=== PATIENT | male | born 1935 | race Caucasian/White ===

== ENCOUNTER 2017-02-12 10:54 | Inpatient (IN) | payer MEDICARE, BC ==
--- NOTE | 2017-02-12 11:46 | EDM.PDOC ---
ED HPI GENERAL MEDICAL PROBLEM - General Chief Complaint: General Stated Complaint: SWELLING BOTH LEGS Time Seen by Provider: 02/12/17 11:42 Source of Information: Reports: Patient, Family History Limitations: Reports: No Limitations - History of Present Illness INITIAL COMMENTS - FREE TEXT/NARRATIVE: pt arrived with leg swelling and some decrease in o2 sats. Onset: Gradual, Other (over the last 2 days. ) Duration: Day(s): Location: Reports: Chest, Lower Extremity, Left, Lower Extremity, Right Associated Symptoms: Reports: Cough, Other (o2 sats were low. ) - Related Data Allergies Allergy/AdvReac Type Severity Reaction Status Date / Time No Known Allergies Allergy Verified 02/12/17 11:25 Home Meds: Home Meds Carvedilol [Coreg] 12.5 mg PO BID 07/31/13 [History] Citalopram Hydrobromide [Celexa] 20 mg PO BEDTIME 07/31/13 [History] Digoxin [Lanoxin] 125 mcg PO BEDTIME 07/31/13 [History] Simvastatin [Zocor] 10 mg PO BEDTIME 07/31/13 [History] Ferrous Sulfate [Iron] 325 mg PO DAILY 12/05/15 [History] Furosemide 40 mg PO DAILY 12/05/15 [History] Multivit-Min/FA/Lycopene/Lut [Centrum Silver Tablet] 1 each PO DAILY 07/13/16 [ History] Past Medical History HEENT History: Reports: Cataract, Hard of Hearing Cardiovascular History: Reports: Aneurysm, Arrhythmia, Bypass, CAD, High Cholesterol, Hypertension, Pacemaker Respiratory History: Reports: COPD, Pneumonia, Recurrent Gastrointestinal History: Reports: GI Bleed Genitourinary History: Reports: Prostate Disorder Musculoskeletal History: Reports: Back Pain, Chronic, Gout, Osteoarthritis Other Musculoskeletal History: back surgery x 2 Psychiatric History: Reports: Depression Hematologic History: Reports: Blood Transfusion(s) Oncologic (Cancer) History: Reports: Colon, Liver - Infectious Disease History Infectious Disease History: Reports: Measles - Past Surgical History HEENT Surgical History: Reports: Eye Surgery, Oral Surgery, Tonsillectomy Cardiovascular Surgical History: Reports: AICD, Aneurysm, Coronary Artery Bypass , Coronary Artery Stent, Pacer GI Surgical History: Reports: Appendectomy, Colon, Colonoscopy Male Surgical History: Reports: TURBT-Transurethral Resection of Bladder Tumor Oncologic Surgical History: Reports: Other (See Below) Other Oncologic Surgeries/Procedures: 1/2 of liver removed. Social & Family History - Family History Family Medical History: Unobtainable - Tobacco Use Smoking Status *Q: Former Smoker Years of Tobacco use: 60 Packs/Tins Daily: 0.5 Used Tobacco, but Quit: Yes Month Tobacco Last Used: 0 Second Hand Smoke Exposure: Yes - Caffeine Use Caffeine Use: Reports: None - Alcohol Use Days Per Week of Alcohol Use: 0 - Recreational Drug Use Recreational Drug Use: No Drug Use in Last 12 Months: No ED ROS GENERAL - Review of Systems Review Of Systems: See Below Constitutional: Reports: No Symptoms HEENT: Reports: No Symptoms Respiratory: Reports: Cough Cardiovascular: Reports: No Symptoms, Other (pt has had a cardiac bypass and has a permanent pacemaker. ) Endocrine: Reports: No Symptoms GI/Abdominal: Reports: No Symptoms : Reports: No Symptoms ED EXAM, GENERAL - Physical Exam Exam: See Below Free Text/Narrative:: pt has been very inactive and lays in bed the majority of the day. He has not had chest pin. He suddenly has had alot more swelling in both legs. He has been slightly sob. His o2 sats were not good on arrival in the mid 80.s Exam Limited By: No Limitations General Appearance: Alert, Mild Distress Ears: Normal TMs Nose: Normal Inspection Throat/Mouth: Normal Inspection Head: Atraumatic Neck: Normal Inspection, Other ( neck veins promient. ) Respiratory/Chest: Other (low o2 sats. ) Cardiovascular: Irregularly Irregular, Other (pt has a pacemaker. ) GI/Abdominal: Soft, Non-Tender (Male) Exam: Deferred Rectal (Males) Exam: Deferred Back Exam: Normal Inspection Extremities: Pedal Edema, Other (pt has plus 2-3 edema present. ) Neurological: Alert, Oriented, Normal Cognition Psychiatric: Anxious Course - Vital Signs Last Recorded V/S: Last Vital Signs Temp 36.2 C 02/12/17 11:22 Pulse 68 02/12/17 11:22 Resp 20 02/12/17 11:22 BP 136/65 02/12/17 11:22 Pulse Ox 91 L 02/12/17 11:22 - Orders/Labs/Meds Orders: Active Orders 24 hr Category Date Time Status EKG Documentation Completion [RC] ASDIRECTED Care 02/12/17 11:40 Active Echo Comp wo Cont [US] Stat Exams 02/12/17 12:43 Ordered Echo Ltd [US] Stat Exams 02/12/17 12:33 Stop Req Sodium Chloride 0.9% [Saline Flush] Med 02/12/17 12:30 Active 10 ml FLUSH ASDIRECTED PRN Saline Lock Insert [OM.PC] Routine Oth 02/12/17 12:30 Ordered EKG 12 Lead [EK] Routine Ther 02/12/17 11:40 Ordered Medication Orders Sodium Chloride (Saline Flush) 10 ml FLUSH ASDIRECTED PRN PRN Reason: Keep Vein Open Labs: Laboratory Tests 02/12/17 02/12/17 02/12/17 Range/Units 11:51 11:51 11:51 WBC 7.9 (4.5-11.0) K/uL RBC 4.03 L (4.30-5.90) M/uL Hgb 12.1 D (12.0-15.0) g/dL Hct 37.4 L (40.0-54.0) % MCV 93 (80-98) fL MCH 30 (27-31) pg MCHC 32 (32-36) % Plt Count 131 L (150-400) K/uL Neut % (Auto) 79 H (36-66) % Lymph % (Auto) 6 L (24-44) % Elk % (Auto) 12 H (2-6) % Eos % (Auto) 3 (2-4) % Baso % (Auto) 0 (0-1) % Sodium 142 (140-148) mmol/L Potassium 4.6 (3.6-5.2) mmol/L Chloride 104 (100-108) mmol/L Carbon Dioxide 32 (21-32) mmol/L Anion Gap 6.0 (5.0-14.0) mmol/L BUN 38 H (7-18) mg/dL Creatinine 1.2 (0.8-1.3) mg/dL Est Cr Clr Drug Dosing 45.84 mL/min Estimated GFR (MDRD) 58 L (>60) Glucose 97 (74-106) mg/dL Calcium 9.0 (8.5-10.1) mg/dL Total Bilirubin 1.3 H D (0.2-1.0) mg/dL AST 29 (15-37) U/L ALT 25 (12-78) U/L Alkaline Phosphatase 161 H D (46-116) U/L Troponin I 0.041 (0.000-0.056) ng/mL Ids-Z-Ovfwxczwynv Pept 05549 H (5-450) pg/mL Total Protein 7.2 (6.4-8.2) g/dL Albumin 2.8 L (3.4-5.0) g/dL Globulin 4.4 H (2.3-3.5) g/dL Albumin/Globulin Ratio 0.6 L (1.2-2.2) Urine Color Urine Appearance Urine pH (4.5-8.0) Ur Specific [place] (1.008-1.030) Urine Protein (NEGATIVE) mg/dL Urine Glucose (UA) (NEGATIVE) mg/dL Urine Ketones (NEGATIVE) mg/dL Urine Occult Blood (NEGATIVE) Urine Nitrite (NEGAITVE) Urine Bilirubin (NEGATIVE) Urine Urobilinogen (NORMAL) mg/dL Ur Leukocyte Esterase (NEGATIVE) Urine RBC (0-5) Urine WBC (0-5) Ur Epithelial Cells Amorphous Sediment Urine Bacteria Urine Mucus Urine Other 02/12/17 Range/Units 12:13 WBC (4.5-11.0) K/uL RBC (4.30-5.90) M/uL Hgb (12.0-15.0) g/dL Hct (40.0-54.0) % MCV (80-98) fL MCH (27-31) pg MCHC (32-36) % Plt Count (150-400) K/uL Neut % (Auto) (36-66) % Lymph % (Auto) (24-44) % Elk % (Auto) (2-6) % Eos % (Auto) (2-4) % Baso % (Auto) (0-1) % Sodium (140-148) mmol/L Potassium (3.6-5.2) mmol/L Chloride (100-108) mmol/L Carbon Dioxide (21-32) mmol/L Anion Gap (5.0-14.0) mmol/L BUN (7-18) mg/dL Creatinine (0.8-1.3) mg/dL Est Cr Clr Drug Dosing mL/min Estimated GFR (MDRD) (>60) Glucose (74-106) mg/dL Calcium (8.5-10.1) mg/dL Total Bilirubin (0.2-1.0) mg/dL AST (15-37) U/L ALT (12-78) U/L Alkaline Phosphatase (46-116) U/L Troponin I (0.000-0.056) ng/mL Tdb-F-Scaaeykhbuj Pept (5-450) pg/mL Total Protein (6.4-8.2) g/dL Albumin (3.4-5.0) g/dL Globulin (2.3-3.5) g/dL Albumin/Globulin Ratio (1.2-2.2) Urine Color Yellow Urine Appearance Slightly cloudy Urine pH 5.0 (4.5-8.0) Ur Specific [place] 1.015 (1.008-1.030) Urine Protein 30 H (NEGATIVE) mg/dL Urine Glucose (UA) Normal (NEGATIVE) mg/dL Urine Ketones Negative (NEGATIVE) mg/dL Urine Occult Blood Negative (NEGATIVE) Urine Nitrite Negative (NEGAITVE) Urine Bilirubin Small (NEGATIVE) Urine Urobilinogen 1 (NORMAL) mg/dL Ur Leukocyte Esterase Negative (NEGATIVE) Urine RBC 0-5 (0-5) Urine WBC 0-5 (0-5) Ur Epithelial Cells Few Amorphous Sediment Not seen Urine Bacteria Not seen Urine Mucus Few Urine Other Meds: Medications Generic Name Dose Route Start Last Admin Trade Name Freq PRN Reason Stop Dose Admin Sodium Chloride 10 ml 02/12/17 12:30 Saline Flush FLUSH ASDIRECTED PRN Keep Vein Open Discontinued Medications Generic Name Dose Route Start Last Admin Trade Name Freq PRN Reason Stop Dose Admin Furosemide 60 mg 02/12/17 12:30 Lasix IVPUSH 02/12/17 12:31 ONETIME ONE - Re-Assessments/Exams Free Text/Narrative Re-Assessment/Exam: 02/12/17 13:56 echo was done showing a decreased funtion and leaky vlves the report will come from the cardiology. He was given lasix 60m iv. Departure - Departure Time of Disposition: 13:57 Disposition: Admitted As Inpatient 66 Condition: fair Clinical Impression: Fluid overload, Decreased cardiac ejection fraction, COPD (chronic obstructive pulmonary disease) - Discharge Information Forms: ED Department Discharge Care Plan Goals: dmit to Dr Pritchett - My Orders Last 24 Hours: My Active Orders 02/12/17 11:40 EKG Documentation Completion [RC] ASDIRECTED EKG 12 Lead [EK] Routine 02/12/17 12:30 Sodium Chloride 0.9% [Saline Flush] 10 ml FLUSH ASDIRECTED PRN Saline Lock Insert [OM.PC] Routine 02/12/17 12:33 Echo Ltd [US] Stat 02/12/17 12:43 Echo Comp wo Cont [US] Stat - Assessment/Plan Last 24 Hours: My Active Orders 02/12/17 11:40 EKG Documentation Completion [RC] ASDIRECTED EKG 12 Lead [EK] Routine 02/12/17 12:30 Sodium Chloride 0.9% [Saline Flush] 10 ml FLUSH ASDIRECTED PRN Saline Lock Insert [OM.PC] Routine 02/12/17 12:33 Echo Ltd [US] Stat 02/12/17 12:43 Echo Comp wo Cont [US] Stat
[2017-02-12] MEDS ORDERED: Sodium Chloride 0.9% 10 ML Syringe FLUSH PRN (12:30)
[2017-02-12] MEDS ORDERED: Furosemide 40 MG/4 ML VIAL IVPUSH ONE (12:30)
--- NOTE | 2017-02-12 12:33 | CR ---
Two-view chest Comparison: 08 December 2015. Lungs: There is cardiac enlargement. The vascular structures appear within normal limits. There is c hronic patchy infiltrate of the left lung base with a small left pleural effusion. This is also demo nstrated in the CT exam of the abdomen from June 2016. There are no new infiltrates. There is car diac pacemaker on the left with 2 intact leads. Impression: 1. Chronic left basilar opacity with small left pleural effusion. 2. Stable cardiac enlargement.
--- NOTE | 2017-02-12 15:31 | PCM.HP ---
H&P History of Present Illness - General Date of Service: 02/12/17 Admit Problem/Dx: Admission Diagnosis/Problem Admission Diagnosis/Problem CHF, Congestive heart failure Source of Information: Patient, Family, Provider History Limitations: Reports: No Limitations - History of Present Illness Initial Comments - Free Text/Narative: Lorenzo presents today with some progression of shortness of breath and lower extremity edema. Most of the history is gathered from his Debra. She reports that he has been getting progressively weaker over the past few months. He now spends most of his time in bed or in a chair. He is minimally active going to the bathroom and getting to meals. He does not think that he is more short of breath with activity but she seems to think that he is more dyspneic with activity that he has been. He has had progressive lower extremity edema involving the ankles and mid clemente area for the past 2 days. He did get an extra dose of Lasix yesterday but this did not help. He does not complain of any chest pain. Does not currently feel short of breath. He says his bowels have been moving normally. He does not complain of significant change in his urinary habits. He is not aware of any fevers. No sick contacts that he is aware of. He seems to think that he is nearing the end of his life and asked why don't we just let him go. He has not had any recent defibrillator shocks. He has not been eating or drinking well but is able to get in a protein drink in the morning and some juice and milk throughout the day. He has lost a significant amount of weight in the past year but most of the weight loss was 1 year ago and things have been stable since then. Workup in the emergency room revealed a very elevated BNP. Echocardiogram was obtained but final read is pending at this time. From my read there appears to be a significant reduction in his ejection fraction and he has severe mitral and tricuspid regurgitation. Mild aortic regurgitation is noted. He has received a dose of furosemide in the emergency room. He will be admitted for further management. - Related Data Allergies/Adverse Reactions: Allergies Allergy/AdvReac Type Severity Reaction Status Date / Time No Known Allergies Allergy Verified 02/12/17 11:25 Home Medications: Home Meds Carvedilol [Coreg] 12.5 mg PO BID 07/31/13 [History] Citalopram Hydrobromide [Celexa] 20 mg PO BEDTIME 07/31/13 [History] Digoxin [Lanoxin] 125 mcg PO BEDTIME 07/31/13 [History] Simvastatin [Zocor] 10 mg PO BEDTIME 07/31/13 [History] Ferrous Sulfate [Iron] 325 mg PO DAILY 12/05/15 [History] Furosemide 40 mg PO DAILY 12/05/15 [History] Multivit-Min/FA/Lycopene/Lut [Centrum Silver Tablet] 1 each PO DAILY 07/13/16 [ History] Past Medical History HEENT History: Reports: Cataract, Hard of Hearing Cardiovascular History: Reports: Aneurysm, Arrhythmia, Bypass, CAD, High Cholesterol, Hypertension, Pacemaker Respiratory History: Reports: COPD, Pneumonia, Recurrent Gastrointestinal History: Reports: GI Bleed Genitourinary History: Reports: Prostate Disorder Musculoskeletal History: Reports: Back Pain, Chronic, Gout, Osteoarthritis Other Musculoskeletal History: back surgery x 2 Psychiatric History: Reports: Depression Hematologic History: Reports: Blood Transfusion(s) Oncologic (Cancer) History: Reports: Colon, Liver - Infectious Disease History Infectious Disease History: Reports: Measles - Past Surgical History HEENT Surgical History: Reports: Eye Surgery, Oral Surgery, Tonsillectomy Cardiovascular Surgical History: Reports: AICD, Aneurysm, Coronary Artery Bypass , Coronary Artery Stent, Pacer GI Surgical History: Reports: Appendectomy, Colon, Colonoscopy Male Surgical History: Reports: TURBT-Transurethral Resection of Bladder Tumor Oncologic Surgical History: Reports: Other (See Below) Other Oncologic Surgeries/Procedures: 1/2 of liver removed. Social & Family History - Family History Family Medical History: Unobtainable - Tobacco Use Smoking Status *Q: Former Smoker Years of Tobacco use: 60 Packs/Tins Daily: 0.5 Used Tobacco, but Quit: Yes Month Tobacco Last Used: 0 Second Hand Smoke Exposure: Yes - Caffeine Use Caffeine Use: Reports: None - Alcohol Use Days Per Week of Alcohol Use: 0 - Recreational Drug Use Recreational Drug Use: No Drug Use in Last 12 Months: No H&P Review of Systems - Review of Systems: Review Of Systems: See Below Free Text/Narrative: A complete 12 point review of systems was obtained. Pertinent positives and negatives are noted in the history of present illness. All other systems were reviewed and were negative except as noted. Exam - Exam Exam: See Below - Vital Signs Vital Signs: Last Vital Signs Temp 36.0 C 02/12/17 14:36 Pulse 76 02/12/17 14:36 Resp 24 H 02/12/17 14:36 BP 124/75 02/12/17 14:36 Pulse Ox 95 02/12/17 14:36 Weight: 67.132 kg - Exam Quality Assessment: Supplemental Oxygen General: Alert, Cooperative, Mild Distress HEENT: Conjunctiva Clear, Pupils Equal. No: Mucosa Moist & Thayer (dry), Scleral Icterus Neck: Supple, Trachea Midline. No: Lymphadenopathy, JVD Lungs: Clear to Auscultation, Normal Respiratory Effort. No: Rales, Wheezing Cardiovascular: Regular Rate, Irregular Rhythm, Systolic Murmur (3 different murmurs. Soft blowing murmurs of different intensity at left upper and left lower sternal border. Blowing systolic murmur at the apex) Abdomen: Normal Bowel Sounds, Soft. No: Distention, Tenderness Back Exam: Normal Inspection, Full Range of Motion Extremities: Edema (The edema of both ankles and lower legs to near the knee bilaterally. Left worse than the right). No: Cyanosis Peripheral Pulses: 2+: Dorsalis Pedis (L), Dorsalis Pedis (R) Skin: Warm, Dry. No: Rash Neuro Extensive - Mental Status: Alert, Nl Response to Commands Neuro Extensive - Motor, Sensory, Reflexes: CN II-XII Intact. No: Dysarthria, Abnormal Motor, Tremor Psychiatric: Alert. No: Normal Affect (Flat affect) - Patient Data Lab Results last 24 hrs: Laboratory Results - last 24 hr 02/12/17 02/12/17 02/12/17 Range/Units 11:51 11:51 11:51 WBC 7.9 (4.5-11.0) K/uL RBC 4.03 L (4.30-5.90) M/uL Hgb 12.1 D (12.0-15.0) g/dL Hct 37.4 L (40.0-54.0) % MCV 93 (80-98) fL MCH 30 (27-31) pg MCHC 32 (32-36) % Plt Count 131 L (150-400) K/uL Neut % (Auto) 79 H (36-66) % Lymph % (Auto) 6 L (24-44) % Jay % (Auto) 12 H (2-6) % Eos % (Auto) 3 (2-4) % Baso % (Auto) 0 (0-1) % Sodium 142 (140-148) mmol/L Potassium 4.6 (3.6-5.2) mmol/L Chloride 104 (100-108) mmol/L Carbon Dioxide 32 (21-32) mmol/L Anion Gap 6.0 (5.0-14.0) mmol/L BUN 38 H (7-18) mg/dL Creatinine 1.2 (0.8-1.3) mg/dL Est Cr Clr Drug Dosing 45.84 mL/min Estimated GFR (MDRD) 58 L (>60) Glucose 97 (74-106) mg/dL Calcium 9.0 (8.5-10.1) mg/dL Total Bilirubin 1.3 H D (0.2-1.0) mg/dL AST 29 (15-37) U/L ALT 25 (12-78) U/L Alkaline Phosphatase 161 H D (46-116) U/L Troponin I 0.041 (0.000-0.056) ng/mL Qnl-O-Urswuxbmnon Pept 42945 H (5-450) pg/mL Total Protein 7.2 (6.4-8.2) g/dL Albumin 2.8 L (3.4-5.0) g/dL Globulin 4.4 H (2.3-3.5) g/dL Albumin/Globulin Ratio 0.6 L (1.2-2.2) Urine Color Urine Appearance Urine pH (4.5-8.0) Ur Specific [place] (1.008-1.030) Urine Protein (NEGATIVE) mg/dL Urine Glucose (UA) (NEGATIVE) mg/dL Urine Ketones (NEGATIVE) mg/dL Urine Occult Blood (NEGATIVE) Urine Nitrite (NEGAITVE) Urine Bilirubin (NEGATIVE) Urine Urobilinogen (NORMAL) mg/dL Ur Leukocyte Esterase (NEGATIVE) Urine RBC (0-5) Urine WBC (0-5) Ur Epithelial Cells Amorphous Sediment Urine Bacteria Urine Mucus Urine Other 02/12/17 Range/Units 12:13 WBC (4.5-11.0) K/uL RBC (4.30-5.90) M/uL Hgb (12.0-15.0) g/dL Hct (40.0-54.0) % MCV (80-98) fL MCH (27-31) pg MCHC (32-36) % Plt Count (150-400) K/uL Neut % (Auto) (36-66) % Lymph % (Auto) (24-44) % Jay % (Auto) (2-6) % Eos % (Auto) (2-4) % Baso % (Auto) (0-1) % Sodium (140-148) mmol/L Potassium (3.6-5.2) mmol/L Chloride (100-108) mmol/L Carbon Dioxide (21-32) mmol/L Anion Gap (5.0-14.0) mmol/L BUN (7-18) mg/dL Creatinine (0.8-1.3) mg/dL Est Cr Clr Drug Dosing mL/min Estimated GFR (MDRD) (>60) Glucose (74-106) mg/dL Calcium (8.5-10.1) mg/dL Total Bilirubin (0.2-1.0) mg/dL AST (15-37) U/L ALT (12-78) U/L Alkaline Phosphatase (46-116) U/L Troponin I (0.000-0.056) ng/mL Qhx-U-Fzaascvwkbx Pept (5-450) pg/mL Total Protein (6.4-8.2) g/dL Albumin (3.4-5.0) g/dL Globulin (2.3-3.5) g/dL Albumin/Globulin Ratio (1.2-2.2) Urine Color Yellow Urine Appearance Slightly cloudy Urine pH 5.0 (4.5-8.0) Ur Specific [place] 1.015 (1.008-1.030) Urine Protein 30 H (NEGATIVE) mg/dL Urine Glucose (UA) Normal (NEGATIVE) mg/dL Urine Ketones Negative (NEGATIVE) mg/dL Urine Occult Blood Negative (NEGATIVE) Urine Nitrite Negative (NEGAITVE) Urine Bilirubin Small (NEGATIVE) Urine Urobilinogen 1 (NORMAL) mg/dL Ur Leukocyte Esterase Negative (NEGATIVE) Urine RBC 0-5 (0-5) Urine WBC 0-5 (0-5) Ur Epithelial Cells Few Amorphous Sediment Not seen Urine Bacteria Not seen Urine Mucus Few Urine Other Result Diagrams: 02/12/17 11:51 02/12/17 11:51 Imaging Impressions last 24 hrs: Chest x-ray - images personally reviewed - lung ovalle appear clear with no infiltrate or effusion. He does have cardiomegaly. Probable hyperinflation suggesting COPD. EKG INTERPRETATION EKG Date: 02/12/17 Rhythm: a-fib [place]: LAD-left axis deviation P-wave: variable QRS: LBBB (Paced rhythm) ST-T: other (Discordant EKG changes consistent with left bundle branch block) QT: normal *Q Meaningful Use (ADM) - VTE *Q VTE Criteria *Q: - VTE Risk Assess *Q Each Risk Factor Represents 1 Point: Congestive Heart Failure, Less than 1 Month , Abnormal Pulmonary Function (COPD) Total Score 1 Point Risk Factors: 2 Each Risk Factor Represents 2 Points: None Total Score 2 Point Risk Factors: 0 Each Risk Factor Represents 3 Points: Age 75 Years or Greater Total Score 3 Point Risk Factors: 3 Each Risk Factor Represents 5 Points: None Total Score 5 Point Risk Factors: 0 Venous Thromboembolism Risk Factor Score *Q: 5 - Stroke *Q Stroke Criteria *Q: - AMI *Q AMI Criteria *Q: - Problem List (1) Chronic systolic congestive heart failure, NYHA class 3 SNOMED Code(s): 514523535, 975872923, 616168360 ICD Code: I50.22 - CHRONIC SYSTOLIC (CONGESTIVE) HEART FAILURE Status: Acute Current Visit: Yes (2) Unintentional weight loss SNOMED Code(s): 545788364 ICD Code: R63.4 - ABNORMAL WEIGHT LOSS Status: Acute Current Visit: Yes (3) Stage III chronic kidney disease SNOMED Code(s): 820971498 ICD Code: N18.3 - CHRONIC KIDNEY DISEASE, STAGE 3 (MODERATE) Status: Chronic Current Visit: Yes (4) COPD (chronic obstructive pulmonary disease) with emphysema SNOMED Code(s): 41084006 ICD Code: J43.9 - EMPHYSEMA, UNSPECIFIED Status: Chronic Current Visit: No Qualifiers: Emphysema type: unspecified Qualified Code(s): J43.9 - Emphysema, unspecified Problem List Initiated/Reviewed/Updated: Yes Orders Last 24hrs: Active Orders 24 hr Category Date Time Status Patient Status Manage Transfer [TRANSFER] Routine ADT 02/12/17 15:17 Ordered EKG Documentation Completion [RC] ASDIRECTED Care 02/12/17 11:40 Active Echo Comp wo Cont [US] Stat Exams 02/12/17 12:43 Taken Sodium Chloride 0.9% [Saline Flush] Med 02/12/17 12:30 Active 10 ml FLUSH ASDIRECTED PRN Saline Lock Insert [OM.PC] Routine Oth 02/12/17 12:30 Ordered Resuscitation Status Routine Resus Stat 02/12/17 15:18 Ordered EKG 12 Lead [EK] Routine Ther 02/12/17 11:40 Ordered Medication Orders Sodium Chloride (Saline Flush) 10 ml FLUSH ASDIRECTED PRN PRN Reason: Keep Vein Open Last Admin: 02/12/17 14:02 Dose: 10 ml Assessment/Plan Comment:: Assessment and plan - Acute on chronic systolic congestive heart failure - secondary to ischemic cardiomyopathy, patient does have lower extremity edema but vascular status seems to suggest intravascular dehydration. He has received some furosemide but has not had much in the way of urine output. I think he actually needs some fluids are to restarting diuretics. Oral intake recently has not been great. With his weight loss, decline in functional status and progressive symptoms I do have some concern that he may be nearing the end stage of his congestive heart failure. His ejection fraction has been around 20% for the past 10 years or so. There is no evidence for acute myocardial infarction at this time. -1 L of IV fluids provided over 10 hours to avoid decompensation -Continue medical management -Hold diuretics -Recess volume status in the morning -Monitoring of intake and output -Follow-up echocardiogram final read -I did bring up hospice but at this point his does not think that he is ready for these services Unintentional weight loss - Most of his weight loss In one year ago after hospitalization. He is not eating and drinking well now. This could be part of his end-stage congestive heart failure type picture. We will need further discussions about plan of care which could include subacute rehabilitation or potentially more of a palliative-based approach. Chronic atrial fibrillation - Rate controlled at this time. 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 He is not chronically anticoagulated because of previous life-threatening hemorrhages. -Continue rate control Stage III chronic kidney disease - Creatinine clearance is worse than baseline. Hopefully will improve with some hydration and we can restart diuretics tomorrow. COPD with emphysema - Mild hypoxia noted at presentation. Patient is not symptomatic and I suspect this is his baseline. No evidence for acute exacerbation. -As needed nebulizers Maintenance issues - - DVT prophylaxis - SCDs - GI prophylaxis - not indicated - Nutrition - low sodium - Hodgson catheter - not indicated CODE STATUS - DO NOT RESUSCITATE/DO NOT INTUBATE Admission justification - This patient will be admitted for inpatient services and is medically appropriate meeting medical necessity for inpatient admission as outlined in my documentation. I reasonably expect the patient will require inpatient services that span a period time over 2 midnights. I reasonably expect this patient to be discharged or transferred within 96 hours [facility]. Disposition - patient wishes to go home but would likely benefit from subacute rehabilitation Primary care physician - Dr Jose Pritchett M.D.
[2017-02-12] MEDS ORDERED: Acetaminophen 325 MG Tab PO PRN (17:24)
[2017-02-12] MEDS ORDERED: Polyethylene Glycol 3350 Powder 17 GM Packet PO PRN (17:24)
[2017-02-12] MEDS ORDERED: Albuterol/Ipratropium 3.0-0.5 MG/3 ML Neb Soln NEB PRN (17:24)
[2017-02-12] MEDS ORDERED: Ondansetron 4 MG Tab.DIS PO PRN (17:24)
[2017-02-12] MEDS ORDERED: Sodium Chloride 0.9% 1,000 ML IV SCH (17:24)
[2017-02-12] MEDS: Citalopram 20 MG Tab PO SCH (20:19)
[2017-02-12] MEDS: Simvastatin 20 MG Tab PO SCH (20:20)
[2017-02-12] MEDS: Carvedilol 12.5 MG Tab PO SCH (20:21)
[2017-02-12] MEDS: Digoxin 125 MCG Tab PO SCH (20:22)
[2017-02-13] MEDS: Ferrous Sulfate 325 MG Tab PO SCH (08:05)
[2017-02-13] MEDS: Carvedilol 12.5 MG Tab PO SCH ×2 (08:06→22:09)
--- NOTE | 2017-02-13 16:20 | PCM.PN ---
- General Info Date of Service: 02/13/17 Functional Status: Reports: pain controlled, tolerating diet, ambulating - Review of Systems General: Reports: Weakness Pulmonary: Denies: shortness of breath Cardiovascular: Reports: Edema (Mild) Systems Review Comment:: No acute events overnight. Lower extremity edema has improved with IV fluids. He has not had any fevers. No complaints of shortness of breath. Oxygen saturations are borderline at rest and do drop into the mid 80s with activity. Strength seems to be improving and he was able to ambulate to the bathroom and back. He is able to get out of bed on his own. - Patient Data Vitals - most recent: Last Vital Signs Temp 34.9 C L 02/13/17 13:25 Pulse 87 02/13/17 13:25 Resp 20 02/13/17 13:25 BP 84/52 L 02/13/17 13:25 Pulse Ox 89 L 02/13/17 13:25 Weight - most recent: 70.2 kg I&O - last 24 hours: Intake & Output 02/13/17 02/13/17 02/13/17 06:59 14:59 22:59 Intake Total 1240 480 Output Total 575 Balance 665 480 Lab Results last 24 hrs: Laboratory Results - last 24 hr 02/13/17 02/13/17 Range/Units 05:00 05:00 WBC 7.0 (4.5-11.0) K/uL RBC 3.81 L (4.30-5.90) M/uL Hgb 11.5 L (12.0-15.0) g/dL Hct 35.2 L (40.0-54.0) % MCV 92 (80-98) fL MCH 30 (27-31) pg MCHC 33 (32-36) % Plt Count 141 L (150-400) K/uL Sodium 143 (140-148) mmol/L Potassium 3.9 (3.6-5.2) mmol/L Chloride 106 (100-108) mmol/L Carbon Dioxide 29 (21-32) mmol/L Anion Gap 8.1 (5.0-14.0) mmol/L BUN 34 H (7-18) mg/dL Creatinine 1.2 (0.8-1.3) mg/dL Est Cr Clr Drug Dosing 47.94 mL/min Estimated GFR (MDRD) 58 L (>60) Glucose 89 (74-106) mg/dL Calcium 8.6 (8.5-10.1) mg/dL C-Reactive Protein 8.42 H (0.0-0.3) mg/dL Med Orders - Current: Current Medications Acetaminophen (Tylenol) 650 mg PO Q4H PRN PRN Reason: Pain (Mild 1-3)/fever Last Admin: 02/13/17 00:19 Dose: 650 mg Albuterol/Ipratropium (Duoneb 3.0-0.5 Mg/3 Ml) 3 ml NEB QID PRN PRN Reason: Shortness Of Breath/wheezing Last Admin: 02/12/17 20:25 Dose: 3 ml Carvedilol (Coreg) 12.5 mg PO BID [facility] Last Admin: 02/13/17 08:06 Dose: 12.5 mg Citalopram Hydrobromide (Celexa) 20 mg PO BEDTIME [facility] Last Admin: 02/12/17 20:19 Dose: 20 mg Digoxin (Lanoxin) 125 mcg PO BEDTIME [facility] Last Admin: 02/12/17 20:22 Dose: 125 mcg Ferrous Sulfate (Ferrous Sulfate) 325 mg PO DAILY@0800 [facility] Last Admin: 02/13/17 08:05 Dose: 325 mg Ondansetron HCl (Zofran Odt) 4 mg PO Q6H PRN PRN Reason: Nausea able to take PO Polyethylene Glycol (Miralax) 17 gm PO DAILY PRN PRN Reason: Constipation Simvastatin (Zocor) 10 mg PO BEDTIME [facility] Last Admin: 02/12/17 20:20 Dose: 10 mg Sodium Chloride (Saline Flush) 10 ml FLUSH ASDIRECTED PRN PRN Reason: Keep Vein Open Last Admin: 02/12/17 14:02 Dose: 10 ml Discontinued Medications Furosemide (Lasix) 60 mg IVPUSH ONETIME ONE Stop: 02/12/17 12:31 Last Admin: 02/12/17 14:00 Dose: 60 mg Sodium Chloride (Normal Saline) 1,000 mls @ 100 mls/hr IV ASDIRECTED [facility] Stop: 02/13/17 03:23 Last Admin: 02/12/17 17:39 Dose: 100 mls/hr - Exam Quality Assessment: No: supplemental oxygen General: alert, oriented, cooperative, no acute distress Neck: supple Lungs: Clear to auscultation, Normal respiratory effort Cardiovascular: Regular Rate, Regular Rhythm, Murmurs Abdomen: soft, no distension Extremities: no cyanosis, edema (Mild bilateral ankle edema) Skin: warm, dry Psy/Mental Status: alert, normal affect - Problem List & Annotations (1) Chronic systolic congestive heart failure, NYHA class 3 SNOMED Code(s): 756733724, 799049303, 383364825 Code(s): I50.22 - CHRONIC SYSTOLIC (CONGESTIVE) HEART FAILURE Status: Acute Current Visit: Yes (2) Unintentional weight loss SNOMED Code(s): 722885978 Code(s): R63.4 - ABNORMAL WEIGHT LOSS Status: Acute Current Visit: Yes (3) Stage III chronic kidney disease SNOMED Code(s): 420610863 Code(s): N18.3 - CHRONIC KIDNEY DISEASE, STAGE 3 (MODERATE) Status: Chronic Current Visit: Yes (4) COPD (chronic obstructive pulmonary disease) with emphysema SNOMED Code(s): 98082015 Code(s): J43.9 - EMPHYSEMA, UNSPECIFIED Status: Chronic Current Visit: No Qualifiers: Emphysema type: unspecified Qualified Code(s): J43.9 - Emphysema, unspecified - Problem List Review Problem List Initiated/Reviewed/Updated: Yes - My Orders Last 24 Hours: My Active Orders 02/12/17 15:18 Resuscitation Status Routine 02/12/17 17:24 Patient Status [ADT] Routine Bedrest Bedside Commode [RC] ASDIRECTED Height and Weight [RC] DAILY Intake and Output [RC] QSHIFT Notify Provider Vital Signs [RC] ASDIRECTED Oxygen Therapy [RC] PRN RT Aerosol Therapy [RC] ASDIRECTED Vital Signs [RC] Q4H PT Evaluation and Treatment [CONS] Routine Acetaminophen [Tylenol] 650 mg PO Q4H PRN Albuterol/Ipratropium [DuoNeb 3.0-0.5 MG/3 ML] 3 ml NEB QID PRN Ondansetron [Zofran ODT] 4 mg PO Q6H PRN Polyethylene Glycol 3350 [MiraLAX] 17 gm PO DAILY PRN Antiembolic Hose [OM.PC] Per Unit Routine 02/12/17 18:03 Pressure Reduction Mattress [OM.PC] Routine 02/13/17 14:57 Evaluate for Home Oxygen [RT Evaluate for Home Oxygen] [RC] Click to Edit 02/13/17 Dinner 2 Gram Sodium Diet [DIET] - Plan Plan:: Assessment and plan - Acute on chronic systolic congestive heart failure - secondary to ischemic cardiomyopathy. Seems better compensated after some IV fluids. Intravascular volume status seems more appropriate today. He does have some mild residual edema but it is quite a bit better. Planning to hold diuretics again and monitor respiratory status overnight. -Continue medical management -Hold diuretics, reassess dosing tomorrow -Recess volume status daily -Monitoring of intake and output -I did bring up hospice but at this point his does not think that he is ready for these services Unintentional weight loss - Most of his weight loss In one year ago after hospitalization. He is not eating and drinking well now. This could be part of his end-stage congestive heart failure type picture. We will need further discussions about plan of care which could include subacute rehabilitation or potentially more of a palliative-based approach. Chronic atrial fibrillation - Rate controlled at this time. 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 He is not chronically anticoagulated because of previous life-threatening hemorrhages. -Continue rate control Stage III chronic kidney disease - Creatinine clearance has improved slightly with hydration. COPD with emphysema - Mild hypoxia noted at presentation. Patient is not symptomatic and I suspect this is his baseline. No evidence for acute exacerbation. -As needed nebulizers -See if patient qualifies for home oxygen Maintenance issues - - DVT prophylaxis - SCDs - GI prophylaxis - not indicated - Nutrition - low sodium Disposition - patient wishes to go home but would likely benefit from subacute rehabilitation. He should be stable for hospital discharge tomorrow. Bartolo Pritchett M.D.
[2017-02-13] MEDS: Simvastatin 20 MG Tab PO SCH (22:10)
[2017-02-13] MEDS: Digoxin 125 MCG Tab PO SCH (22:10)
[2017-02-13] MEDS: Citalopram 20 MG Tab PO SCH (22:10)
[2017-02-14] MEDS: Ferrous Sulfate 325 MG Tab PO SCH (09:25)
[2017-02-14] MEDS: Carvedilol 12.5 MG Tab PO SCH (09:25)
[2017-02-14 12:36] VITALS: BP 114/65
--- NOTE | 2017-02-14 12:43 | PCM.DCSUM1 ---
Discharge Summary - Hospital Course Brief History: 81-year-old male with history of tobacco dependence and chronic systolic congestive heart failure who presented with progressive lower extremity edema and shortness of breath. He was admitted for management of decompensated heart failure with hypoxic respiratory failure. - Discharge Data Discharge Date: 02/14/17 Discharge Disposition: Home, Self-Care 01 Condition: Fair - Discharge Diagnosis/Problem(s) (1) Chronic systolic congestive heart failure, NYHA class 3 SNOMED Code(s): 925318384, 835149099, 067591815 ICD Code: I50.22 - CHRONIC SYSTOLIC (CONGESTIVE) HEART FAILURE Status: Acute (2) Unintentional weight loss SNOMED Code(s): 623334404 ICD Code: R63.4 - ABNORMAL WEIGHT LOSS Status: Acute (3) Stage III chronic kidney disease SNOMED Code(s): 893897040 ICD Code: N18.3 - CHRONIC KIDNEY DISEASE, STAGE 3 (MODERATE) Status: Chronic (4) COPD (chronic obstructive pulmonary disease) with emphysema SNOMED Code(s): 21643925 ICD Code: J43.9 - EMPHYSEMA, UNSPECIFIED Status: Chronic Qualifiers: Emphysema type: unspecified Qualified Code(s): J43.9 - Emphysema, unspecified - Patient Summary/Data Consults: Consultations 02/12/17 17:24 PT Evaluation and Treatment [CONS] Routine Please Evaluate and Treat. PT Reason for Consult: Strengthening This query below is only for informational purposes and is not editable. Hospital Course: Reginaldo presented to the emergency room with shortness of breath and progressive lower extremity edema. Workup in the emergency room was suggestive of congestive heart failure and furosemide was given. On my examination I was more suspicious that he had intravascular depletion and I elected to treat with IV fluids. Overnight he did not have any acute events. His lower extremity edema was 50% better from the time of hospital admission after receiving some IV fluids. Respiratory status had improved and clinically he was more alert and interactive. Strength seemed to be fairly adequate and he was able to get out of bed and go to the bathroom and back. We held his diuretics for an additional day and monitor his volume status. The second day of admission he has essentially no lower extremity edema. Respiratory status does remain stable. He did qualify for home oxygen as discussed below. For his heart failure, I suspect that he had intravascular volume depletion leading to kind of a high output failure type picture. He has responded well to IV fluids. We have elected to hold his diuretics and use them as needed if he does develop any lower extremity edema. He is on acceptable medical management for his heart failure. He did have an echo in the emergency department. This revealed an ejection fraction around 20% with likely ischemic cardiomyopathy and severe mitral and tricuspid regurgitation. His ejection fraction back in 2008 was in the 20% range as well. I do have some concerns that his congestive heart failure may be nearing an end stage. He has had significant weight loss and progressive decline in function. I did discuss hospice with the patient and his . At this point they're not ready for hospice and don't believe that he has at that stage of his life. They have elected to continue medical management and will be going home today. He will be on home oxygen 24 hours a day. I did not change any of his medications other than making his furosemide as needed rather than scheduled. I had a [id number] encounter with Mr. Patel today, 02/14/2017. The face-to -face encounter was 4 COPD with emphysema. I believe that he would benefit from using supplemental oxygen 24 hours per day. He is active around the home and would benefit from portable oxygen. On February 13 he had an oxygen saturation of 85% on room air. Oxygen saturations with 2 L of oxygen have been greater than 90%. Been on supplemental oxygen will help to reduce the stress on the heart with hypoxia and help to improve his endurance and conditioning. - Patient Instructions Diet: Regular Diet as Tolerated Activity: As Tolerated Showering/Bathing: May Shower Notify Provider of: Fever, Increased Pain, Nausea and/or Vomiting Other/Special Instructions: 1. You were in the hospital for management of congestive heart failure with intravascular volume depletion. The heart failure did get better with some gentle IV fluids and holding the diuretics. I would recommend that you not take the furosemide daily but rather use it only if you have ankle swelling for 2 consecutive days. You can help to manage the ankle swelling with the tight socks that we provided in the hospital or with elevating your legs above the level of your pelvis for 20-30 minutes at a time, several times per day. Try to avoid consuming extra salt with your diet. 2. I recommend that you use supplemental oxygen at 2 L per minute 24 hours a day. You may elect to take this off while you are resting if you do not have shortness of breath and if your oxygen numbers are greater than 88%. 3. Please seek medical attention if you develop fever greater than 101, have sudden worsening of your shortness of breath or have significant swelling of your lower extremities that does not respond to furosemide. - Discharge Plan Prescriptions/Med Rec: Furosemide 40 mg PO DAILY PRN #30 tablet PRN Reason: Edema Home Medications: Home Meds Carvedilol [Coreg] 12.5 mg PO BID 07/31/13 [History] Citalopram Hydrobromide [Celexa] 20 mg PO BEDTIME 07/31/13 [History] Digoxin [Lanoxin] 125 mcg PO BEDTIME 07/31/13 [History] Simvastatin [Zocor] 10 mg PO BEDTIME 07/31/13 [History] Ferrous Sulfate [Iron] 325 mg PO DAILY 12/05/15 [History] Multivit-Min/FA/Lycopene/Lut [Centrum Silver Tablet] 1 each PO DAILY 07/13/16 [ History] Furosemide 40 mg PO DAILY PRN #30 tablet 02/14/17 [Rx] Patient Handouts: Chronic Obstructive Pulmonary Disease Referrals: Lam Garcia MD [Primary Care Provider] - - Discharge Summary/Plan Comment DC Time >30 min.: No (25) - Patient Data Vitals - Most Recent: Last Vital Signs Temp 35.5 C 02/14/17 12:35 Pulse 57 L 02/14/17 12:35 Resp 16 02/14/17 12:35 BP 114/65 02/14/17 12:35 Pulse Ox 94 L 02/14/17 12:35 Weight - Most Recent: 70.2 kg I&O - Last 24 hours: Intake & Output 02/13/17 02/14/17 02/14/17 22:59 06:59 14:59 Intake Total 480 240 240 Balance 480 240 240 Med Orders - Current: Current Medications Acetaminophen (Tylenol) 650 mg PO Q4H PRN PRN Reason: Pain (Mild 1-3)/fever Last Admin: 02/13/17 00:19 Dose: 650 mg Albuterol/Ipratropium (Duoneb 3.0-0.5 Mg/3 Ml) 3 ml NEB QID PRN PRN Reason: Shortness Of Breath/wheezing Last Admin: 02/12/17 20:25 Dose: 3 ml Carvedilol (Coreg) 12.5 mg PO BID [facility] Last Admin: 02/14/17 09:25 Dose: 12.5 mg Citalopram Hydrobromide (Celexa) 20 mg PO BEDTIME [facility] Last Admin: 02/13/17 22:10 Dose: 20 mg Digoxin (Lanoxin) 125 mcg PO BEDTIME [facility] Last Admin: 02/13/17 22:10 Dose: 125 mcg Ferrous Sulfate (Ferrous Sulfate) 325 mg PO DAILY@0800 [facility] Last Admin: 02/14/17 09:25 Dose: 325 mg Ondansetron HCl (Zofran Odt) 4 mg PO Q6H PRN PRN Reason: Nausea able to take PO Polyethylene Glycol (Miralax) 17 gm PO DAILY PRN PRN Reason: Constipation Simvastatin (Zocor) 10 mg PO BEDTIME [facility] Last Admin: 02/13/17 22:10 Dose: 10 mg Sodium Chloride (Saline Flush) 10 ml FLUSH ASDIRECTED PRN PRN Reason: Keep Vein Open Last Admin: 02/12/17 14:02 Dose: 10 ml Discontinued Medications Furosemide (Lasix) 60 mg IVPUSH ONETIME ONE Stop: 02/12/17 12:31 Last Admin: 02/12/17 14:00 Dose: 60 mg Sodium Chloride (Normal Saline) 1,000 mls @ 100 mls/hr IV ASDIRECTED [facility] Stop: 02/13/17 03:23 Last Admin: 02/12/17 17:39 Dose: 100 mls/hr *Q Meaningful Use (DIS) - VTE *Q VTE Criteria *Q: - Stroke *Q Stroke Criteria *Q: - AMI *Q AMI Criteria *Q:
== END 2017-02-14 13:15 | disposition home or self-care (01) | DRG 291 ==
LOC: JP.ED 10:54 → JP.MS 15:17
PROVIDERS: ADMIT Internal Medicine; ATTEND Internal Medicine
DX: I13.0 Hypertensive heart and chronic kidney disease with heart failure and stage 1 through stage 4 chronic kidney disease, or unspecified chronic kidney disease (principal); I50.23 Acute on chronic systolic (congestive) heart failure; E86.9 Volume depletion, unspecified; N18.3 Chronic kidney disease, stage 3 (moderate); Z66 Do not resuscitate; Z87.891 Personal history of nicotine dependence; J43.9 Emphysema, unspecified; I25.10 Atherosclerotic heart disease of native coronary artery without angina pectoris; Z99.81 Dependence on supplemental oxygen; M19.90 Unspecified osteoarthritis, unspecified site; F32.9 Major depressive disorder, single episode, unspecified; Z87.01 Personal history of pneumonia (recurrent); Z95.0 Presence of cardiac pacemaker; E78.00 Pure hypercholesterolemia, unspecified; Z95.1 Presence of aortocoronary bypass graft; H91.90 Unspecified hearing loss, unspecified ear; Z85.038 Personal history of other malignant neoplasm of large intestine; Z85.05 Personal history of malignant neoplasm of liver
CPT/HCPCS: 36415; 71020 ×2; 80053; 81001; 83880; 84484; 85025; 93005; 93306; 96374; 99284; J1940; J7050; 80048; 85027; 86140; 93010; 97161-GP; 97530-GP; 99285; A9270-GY; J7040; J7620

== ENCOUNTER 2017-04-03 16:15 | Inpatient (IN) | payer MEDICARE, BC ==
[2017-04-03] MEDS ORDERED: Furosemide 40 MG/4 ML VIAL IVPUSH ONE (17:32)
[2017-04-03] MEDS ORDERED: Albuterol 0.083% 2.5 MG/3 ML Neb Soln NEB ONE (17:33)
--- NOTE | 2017-04-03 17:39 | EDM.PDOC ---
ED HPI GENERAL MEDICAL PROBLEM - General Chief Complaint: Respiratory Problem Stated Complaint: MEDICAL VIA TRI Time Seen by Provider: 04/03/17 16:25 Source of Information: Reports: Patient, Family History Limitations: Reports: No Limitations - History of Present Illness INITIAL COMMENTS - FREE TEXT/NARRATIVE: pt was found sitting in the kitchen without his o2. He was very sob. He was so weak he was bearly able to walk. He has not been able to eat normally. Onset: Today, Other ( his breathing was much worse than usual. ) Duration: Hour(s):, Getting Worse Location: Reports: Chest Associated Symptoms: Reports: No Other Symptoms, Cough, Shortness of Breath, Weakness - Related Data Allergies Allergy/AdvReac Type Severity Reaction Status Date / Time No Known Allergies Allergy Verified 02/12/17 11:25 Home Meds: Home Meds Carvedilol [Coreg] 12.5 mg PO BID 07/31/13 [History] Citalopram Hydrobromide [Celexa] 20 mg PO BEDTIME 07/31/13 [History] Digoxin [Lanoxin] 125 mcg PO BEDTIME 07/31/13 [History] Simvastatin [Zocor] 10 mg PO BEDTIME 07/31/13 [History] Ferrous Sulfate [Iron] 325 mg PO DAILY 12/05/15 [History] Multivit-Min/FA/Lycopene/Lut [Centrum Silver Tablet] 1 each PO DAILY 07/13/16 [ History] Furosemide 40 mg PO DAILY PRN #30 tablet 02/14/17 [Rx] Past Medical History HEENT History: Reports: Cataract, Hard of Hearing Cardiovascular History: Reports: Aneurysm, Arrhythmia, Bypass, CAD, High Cholesterol, Hypertension, Pacemaker Respiratory History: Reports: COPD, Pneumonia, Recurrent Gastrointestinal History: Reports: GI Bleed Genitourinary History: Reports: Prostate Disorder Musculoskeletal History: Reports: Back Pain, Chronic, Gout, Osteoarthritis Other Musculoskeletal History: back surgery x 2 Psychiatric History: Reports: Depression Hematologic History: Reports: Blood Transfusion(s) Oncologic (Cancer) History: Reports: Colon, Liver - Infectious Disease History Infectious Disease History: Reports: Chicken Pox, Measles, Mumps - Past Surgical History HEENT Surgical History: Reports: Eye Surgery, Oral Surgery, Tonsillectomy Cardiovascular Surgical History: Reports: AICD, Aneurysm, Coronary Artery Bypass , Coronary Artery Stent, Pacer GI Surgical History: Reports: Appendectomy, Colon, Colonoscopy Male Surgical History: Reports: TURBT-Transurethral Resection of Bladder Tumor Oncologic Surgical History: Reports: Other (See Below) Other Oncologic Surgeries/Procedures: 1/2 of liver removed. Social & Family History - Family History Family Medical History: Unobtainable - Tobacco Use Smoking Status *Q: Former Smoker Years of Tobacco use: 60 Packs/Tins Daily: 0.5 Used Tobacco, but Quit: Yes Month Tobacco Last Used: many years ago Second Hand Smoke Exposure: Yes - Caffeine Use Caffeine Use: Reports: Coffee Other Caffeine Use: very little - Alcohol Use Days Per Week of Alcohol Use: 0 - Recreational Drug Use Recreational Drug Use: No Drug Use in Last 12 Months: No ED ROS GENERAL - Review of Systems Review Of Systems: See Below Constitutional: Reports: No Symptoms HEENT: Reports: No Symptoms Respiratory: Reports: Shortness of Breath Cardiovascular: Reports: No Symptoms Endocrine: Reports: No Symptoms GI/Abdominal: Reports: Decreased Appetite : Reports: No Symptoms Musculoskeletal: Reports: No Symptoms Skin: Reports: No Symptoms Neurological: Reports: Weakness Psychiatric: Reports: Anxiety ED EXAM, GENERAL - Physical Exam Exam: See Below Free Text/Narrative:: pt arrived with increased sob. He was very weak and he had trouble even getting back to his room. Exam Limited By: Respiratory Distress General Appearance: Alert, Moderate Distress Ears: Normal TMs Nose: Normal Inspection Throat/Mouth: Normal Inspection Head: Atraumatic Neck: Normal Inspection Respiratory/Chest: Decreased Breath Sounds, Rhonchi Cardiovascular: Regular Rate, Rhythm GI/Abdominal: Soft, Non-Tender (Male) Exam: Normal Inspection Rectal (Males) Exam: Deferred Back Exam: Normal Inspection Extremities: Normal Inspection Neurological: Alert, Oriented, Normal Cognition Psychiatric: Anxious Course - Vital Signs Last Recorded V/S: Last Vital Signs Temp 37.2 C 04/03/17 16:19 Pulse 70 04/03/17 18:09 Resp 16 04/03/17 16:19 BP 137/55 L 04/03/17 18:09 Pulse Ox 96 04/03/17 18:09 - Orders/Labs/Meds Orders: Active Orders 24 hr Category Date Time Status EKG Documentation Completion [RC] ASDIRECTED Care 04/03/17 16:34 Active RT Aerosol Therapy [RC] ASDIRECTED Care 04/03/17 17:34 Active Chest 1V Frontal [CR] Stat Exams 04/03/17 16:33 Taken CULTURE URINE [RM] Stat Lab 04/03/17 18:27 Uncollected EKG 12 Lead [EK] Routine Ther 04/03/17 16:34 Ordered Labs: Laboratory Tests 04/03/17 04/03/17 04/03/17 Range/Units 16:33 16:40 16:40 WBC 11.1 H (4.5-11.0) K/uL RBC 3.86 L (4.30-5.90) M/uL Hgb 11.5 L (12.0-15.0) g/dL Hct 35.4 L (40.0-54.0) % MCV 92 (80-98) fL MCH 30 (27-31) pg MCHC 33 (32-36) % Plt Count 109 L (150-400) K/uL Neut % (Auto) 84 H (36-66) % Lymph % (Auto) 4 L (24-44) % [place] % (Auto) 11 H (2-6) % Eos % (Auto) 0 L (2-4) % Baso % (Auto) 0 (0-1) % Puncture Site ABG pH (7.350-7.450) ABG pCO2 (35.0-42.0) mmHg ABG pO2 (75.0-100.0) mmHg ABG HCO3 (22.0-26.0) mmol/L ABG Total CO2 (23.0-27.0) mmol/L ABG O2 Saturation (95.0-98.0) % ABG O2 Content (15.0-23.0) %vol ABG Base Excess mm/L ABG Hemoglobin (13.5-18.0) g/dL ABG Oxyhemoglobin % ABG Carboxyhemoglobin (0.0-1.6) % ABG Methemoglobin % Fabrizio Test O2 Delivery Device Sodium (140-148) mmol/L Potassium (3.6-5.2) mmol/L Chloride (100-108) mmol/L Carbon Dioxide (21-32) mmol/L Anion Gap (5.0-14.0) mmol/L BUN (7-18) mg/dL Creatinine (0.8-1.3) mg/dL Est Cr Clr Drug Dosing mL/min Estimated GFR (MDRD) (>60) Glucose (74-106) mg/dL Calcium (8.5-10.1) mg/dL Total Bilirubin (0.2-1.0) mg/dL AST (15-37) U/L ALT (12-78) U/L Alkaline Phosphatase (46-116) U/L Creatine Kinase (39-308) U/L Troponin I 0.049 (0.000-0.056) ng/mL Qap-G-Tmhehfqkjet Pept (5-450) pg/mL Total Protein (6.4-8.2) g/dL Albumin (3.4-5.0) g/dL Globulin (2.3-3.5) g/dL Albumin/Globulin Ratio (1.2-2.2) Urine Color Yellow Urine Appearance Cloudy Urine pH 6.0 (4.5-8.0) Ur Specific [place] 1.010 (1.008-1.030) Urine Protein 30 H (NEGATIVE) mg/dL Urine Glucose (UA) Normal (NEGATIVE) mg/dL Urine Ketones Negative (NEGATIVE) mg/dL Urine Occult Blood Negative (NEGATIVE) Urine Nitrite Negative (NEGAITVE) Urine Bilirubin Negative (NEGATIVE) Urine Urobilinogen Normal (NORMAL) mg/dL Ur Leukocyte Esterase Negative (NEGATIVE) Urine RBC 5-10 H (0-5) Urine WBC 5-10 H (0-5) Ur Epithelial Cells Moderate Amorphous Sediment Few Urine Bacteria Few Urine Mucus Few Digoxin (0.90-2.00) ng/mL 04/03/17 04/03/17 04/03/17 Range/Units 16:40 17:29 17:31 WBC (4.5-11.0) K/uL RBC (4.30-5.90) M/uL Hgb (12.0-15.0) g/dL Hct (40.0-54.0) % MCV (80-98) fL MCH (27-31) pg MCHC (32-36) % Plt Count (150-400) K/uL Neut % (Auto) (36-66) % Lymph % (Auto) (24-44) % [place] % (Auto) (2-6) % Eos % (Auto) (2-4) % Baso % (Auto) (0-1) % Puncture Site Rt brachial ABG pH 7.417 (7.350-7.450) ABG pCO2 47.1 H (35.0-42.0) mmHg ABG pO2 80.1 (75.0-100.0) mmHg ABG HCO3 29.8 H (22.0-26.0) mmol/L ABG Total CO2 27.1 H (23.0-27.0) mmol/L ABG O2 Saturation 95.6 (95.0-98.0) % ABG O2 Content 15.1 (15.0-23.0) %vol ABG Base Excess 5.0 mm/L ABG Hemoglobin 11.5 L (13.5-18.0) g/dL ABG Oxyhemoglobin 93.3 % ABG Carboxyhemoglobin 1.9 H (0.0-1.6) % ABG Methemoglobin 0.5 % Fabrizio Test Passed O2 Delivery Device Nasal cannula Sodium 141 (140-148) mmol/L Potassium 4.3 (3.6-5.2) mmol/L Chloride 103 (100-108) mmol/L Carbon Dioxide 32 (21-32) mmol/L Anion Gap 6.1 (5.0-14.0) mmol/L BUN 38 H (7-18) mg/dL Creatinine 1.4 H (0.8-1.3) mg/dL Est Cr Clr Drug Dosing 41.95 mL/min Estimated GFR (MDRD) 49 L (>60) Glucose 113 H (74-106) mg/dL Calcium 8.8 (8.5-10.1) mg/dL Total Bilirubin 1.7 H (0.2-1.0) mg/dL AST 28 (15-37) U/L ALT 15 (12-78) U/L Alkaline Phosphatase 106 (46-116) U/L Creatine Kinase 47 (39-308) U/L Troponin I (0.000-0.056) ng/mL Tjl-N-Coqalnehgxg Pept 72041 H (5-450) pg/mL Total Protein 7.9 (6.4-8.2) g/dL Albumin 3.2 L (3.4-5.0) g/dL Globulin 4.7 H (2.3-3.5) g/dL Albumin/Globulin Ratio 0.7 L (1.2-2.2) Urine Color Urine Appearance Urine pH (4.5-8.0) Ur Specific [place] (1.008-1.030) Urine Protein (NEGATIVE) mg/dL Urine Glucose (UA) (NEGATIVE) mg/dL Urine Ketones (NEGATIVE) mg/dL Urine Occult Blood (NEGATIVE) Urine Nitrite (NEGAITVE) Urine Bilirubin (NEGATIVE) Urine Urobilinogen (NORMAL) mg/dL Ur Leukocyte Esterase (NEGATIVE) Urine RBC (0-5) Urine WBC (0-5) Ur Epithelial Cells Amorphous Sediment Urine Bacteria Urine Mucus Digoxin 0.96 (0.90-2.00) ng/mL Meds: Medications Discontinued Medications Generic Name Dose Route Start Last Admin Trade Name Freq PRN Reason Stop Dose Admin Albuterol 2.5 mg 04/03/17 17:33 04/03/17 18:03 Proventil Neb Soln NEB 04/03/17 17:34 2.5 mg ONETIME ONE Administration Furosemide 40 mg 04/03/17 17:32 04/03/17 18:03 Lasix IVPUSH 04/03/17 17:33 40 mg ONETIME ONE Administration - Re-Assessments/Exams Free Text/Narrative Re-Assessment/Exam: 04/03/17 18:40 bood gases do not show any retention of co2. His chest xray did show marked cardiomegoly, He feels very weak. Departure - Departure Time of Disposition: 18:42 Disposition: Admitted As Inpatient 66 Condition: Fair Clinical Impression: CHF (congestive heart failure), Weakness, COPD (chronic obstructive pulmonary disease) - Discharge Information Forms: ED Department Discharge Care Plan Goals: admit to Dr Littlejohn. - My Orders Last 24 Hours: My Active Orders 04/03/17 16:33 Chest 1V Frontal [CR] Stat 04/03/17 16:34 EKG Documentation Completion [RC] ASDIRECTED EKG 12 Lead [EK] Routine 04/03/17 17:34 RT Aerosol Therapy [RC] ASDIRECTED 04/03/17 18:27 CULTURE URINE [RM] Stat - Assessment/Plan Last 24 Hours: My Active Orders 04/03/17 16:33 Chest 1V Frontal [CR] Stat 04/03/17 16:34 EKG Documentation Completion [RC] ASDIRECTED EKG 12 Lead [EK] Routine 04/03/17 17:34 RT Aerosol Therapy [RC] ASDIRECTED 04/03/17 18:27 CULTURE URINE [RM] Stat
--- NOTE | 2017-04-03 20:03 | PCM.HP ---
H&P History of Present Illness - General Date of Service: 04/03/17 Admit Problem/Dx: Admission Diagnosis/Problem Admission Diagnosis/Problem Congestive heart failure Source of Information: Patient, Family (Son; Uvaldo) History Limitations: Reports: No Limitations - History of Present Illness Initial Comments - Free Text/Narative: - History of Present Illness INITIAL COMMENTS - FREE TEXT/NARRATIVE: pt was found sitting in the kitchen without his o2. He was very sob. He was so weak he was barely able to walk. He has not been able to eat normally. Onset: Today, Other ( his breathing was much worse than usual. ) Duration: Hour(s):, Getting Worse Location: Reports: Chest Associated Symptoms: Reports: No Other Symptoms, Cough, Shortness of Breath, Weakness - Related Data Onset of Symptoms: Reports: Gradual Duration of Symptoms: Reports: Day(s):, Getting Worse Location: Reports: Generalized Quality: Reports: Same as Previous Episode (weakness, shortness of breath, lack of energy) Improves with: Reports: Medication, Rest Worsens with: Reports: Movement Associated Symptoms: Reports: Loss of Appetite, Nausea/Vomiting, Shortness of Breath, Weakness - Related Data Allergies/Adverse Reactions: Allergies Allergy/AdvReac Type Severity Reaction Status Date / Time No Known Allergies Allergy Verified 02/12/17 11:25 Home Medications: Home Meds Carvedilol [Coreg] 12.5 mg PO BID 07/31/13 [History] Citalopram Hydrobromide [Celexa] 20 mg PO BEDTIME 07/31/13 [History] Digoxin [Lanoxin] 125 mcg PO BEDTIME 07/31/13 [History] Simvastatin [Zocor] 10 mg PO BEDTIME 07/31/13 [History] Ferrous Sulfate [Iron] 325 mg PO DAILY 12/05/15 [History] Multivit-Min/FA/Lycopene/Lut [Centrum Silver Tablet] 1 each PO DAILY 07/13/16 [ History] Furosemide 40 mg PO DAILY PRN #30 tablet 02/14/17 [Rx] Past Medical History HEENT History: Reports: Cataract, Hard of Hearing Cardiovascular History: Reports: Aneurysm, Arrhythmia, Bypass, CAD, High Cholesterol, Hypertension, Pacemaker Respiratory History: Reports: COPD, Pneumonia, Recurrent Gastrointestinal History: Reports: GI Bleed Genitourinary History: Reports: Prostate Disorder Musculoskeletal History: Reports: Back Pain, Chronic, Gout, Osteoarthritis Other Musculoskeletal History: back surgery x 2 Psychiatric History: Reports: Depression Hematologic History: Reports: Blood Transfusion(s) Oncologic (Cancer) History: Reports: Colon, Liver - Infectious Disease History Infectious Disease History: Reports: Chicken Pox, Measles, Mumps - Past Surgical History HEENT Surgical History: Reports: Eye Surgery, Oral Surgery, Tonsillectomy Cardiovascular Surgical History: Reports: AICD, Aneurysm, Coronary Artery Bypass , Coronary Artery Stent, Pacer GI Surgical History: Reports: Appendectomy, Colon, Colonoscopy Male Surgical History: Reports: TURBT-Transurethral Resection of Bladder Tumor Oncologic Surgical History: Reports: Other (See Below) Other Oncologic Surgeries/Procedures: 1/2 of liver removed. Social & Family History - Family History Family Medical History: Unobtainable - Tobacco Use Smoking Status *Q: Former Smoker Years of Tobacco use: 60 Packs/Tins Daily: 0.5 Used Tobacco, but Quit: Yes Month Tobacco Last Used: many years ago Second Hand Smoke Exposure: Yes - Caffeine Use Caffeine Use: Reports: Coffee Other Caffeine Use: very little - Alcohol Use Days Per Week of Alcohol Use: 0 - Recreational Drug Use Recreational Drug Use: No Drug Use in Last 12 Months: No - Living Situation & Occupation Living situation: Reports: Occupation: Disabled (lives at home with Funmi, age 69 in [facility].) H&P Review of Systems - Review of Systems: Review Of Systems: See Below General: Reports: Weakness, Fatigue HEENT: Reports: Other (no teeth or dentures, tolerates regular diet) Pulmonary: Reports: Shortness of Breath, Wheezing Cardiovascular: Reports: Dyspnea on Exertion, Orthopnea Gastrointestinal: Reports: Nausea (intermittent ), Vomiting (intermittent) Genitourinary: Reports: No Symptoms Musculoskeletal: Reports: Neck Pain, Muscle Pain (neck), Muscle Stiffness (neck) Skin: Reports: No Symptoms Psychiatric: Reports: No Symptoms Neurological: Reports: Dizziness, Weakness Hematologic/Lymphatic: Reports: No Symptoms Immunologic: Reports: No Symptoms Exam - Exam Exam: See Below - Vital Signs Vital Signs: Last Vital Signs Temp 38.7 C H 04/03/17 19:49 Pulse 71 04/03/17 19:49 Resp 15 04/03/17 19:49 BP 137/73 04/03/17 19:49 Pulse Ox 94 L 04/03/17 19:49 Weight: 71.668 kg - Exam Quality Assessment: Supplemental Oxygen General: Alert, Oriented, Cooperative, Other (thin) HEENT: PERRLA, Conjunctiva Clear, EOMI, Hearing Intact, Nares Patent, Pupils Equal, Pupils Reactive, Other (excessive ear wax) Neck: Supple Lungs: Normal Respiratory Effort, Decreased Breath Sounds (at bases), Crackles ( at bases) Cardiovascular: Regular Rate, Regular Rhythm, Normal S1, Normal S2 GI/Abdominal Exam: Normal Bowel Sounds, Soft, Non-Tender, No Distention, No Abnormal Bruit, No Mass, Pelvis Stable, Other (multi old well healed surgical scars. midline chest, abdomen) (Male) Exam: Normal Inspection, Deferred Rectal (Males) Exam: Deferred Back Exam: Normal Inspection, Full Range of Motion Extremities: Normal Inspection, Normal Range of Motion, Non-Tender, No Pedal Edema, Normal Capillary Refill Skin: Warm, Dry, Intact Neurological: Reflexes Equal Bilateral, Strength Equal Bilateral Neuro Extensive - Mental Status: Alert, Oriented x3, Normal Mood/Affect, Normal Cognition, Memory Intact Neuro Extensive - Motor, Sensory, Reflexes: Normal Reflexes Psychiatric: Alert, Normal Affect, Normal Mood - Patient Data Lab Results Last 24 hrs: Laboratory Results - last 24 hr 04/03/17 04/03/17 04/03/17 Range/Units 16:33 16:40 16:40 WBC 11.1 H (4.5-11.0) K/uL RBC 3.86 L (4.30-5.90) M/uL Hgb 11.5 L (12.0-15.0) g/dL Hct 35.4 L (40.0-54.0) % MCV 92 (80-98) fL MCH 30 (27-31) pg MCHC 33 (32-36) % Plt Count 109 L (150-400) K/uL Neut % (Auto) 84 H (36-66) % Lymph % (Auto) 4 L (24-44) % [place] % (Auto) 11 H (2-6) % Eos % (Auto) 0 L (2-4) % Baso % (Auto) 0 (0-1) % Puncture Site ABG pH (7.350-7.450) ABG pCO2 (35.0-42.0) mmHg ABG pO2 (75.0-100.0) mmHg ABG HCO3 (22.0-26.0) mmol/L ABG Total CO2 (23.0-27.0) mmol/L ABG O2 Saturation (95.0-98.0) % ABG O2 Content (15.0-23.0) %vol ABG Base Excess mm/L ABG Hemoglobin (13.5-18.0) g/dL ABG Oxyhemoglobin % ABG Carboxyhemoglobin (0.0-1.6) % ABG Methemoglobin % Fabrizio Test O2 Delivery Device Sodium (140-148) mmol/L Potassium (3.6-5.2) mmol/L Chloride (100-108) mmol/L Carbon Dioxide (21-32) mmol/L Anion Gap (5.0-14.0) mmol/L BUN (7-18) mg/dL Creatinine (0.8-1.3) mg/dL Est Cr Clr Drug Dosing mL/min Estimated GFR (MDRD) (>60) Glucose (74-106) mg/dL Calcium (8.5-10.1) mg/dL Total Bilirubin (0.2-1.0) mg/dL AST (15-37) U/L ALT (12-78) U/L Alkaline Phosphatase (46-116) U/L Creatine Kinase (39-308) U/L Troponin I 0.049 (0.000-0.056) ng/mL Dwr-I-Rzkinkcetln Pept (5-450) pg/mL Total Protein (6.4-8.2) g/dL Albumin (3.4-5.0) g/dL Globulin (2.3-3.5) g/dL Albumin/Globulin Ratio (1.2-2.2) Urine Color Yellow Urine Appearance Cloudy Urine pH 6.0 (4.5-8.0) Ur Specific [place] 1.010 (1.008-1.030) Urine Protein 30 H (NEGATIVE) mg/dL Urine Glucose (UA) Normal (NEGATIVE) mg/dL Urine Ketones Negative (NEGATIVE) mg/dL Urine Occult Blood Negative (NEGATIVE) Urine Nitrite Negative (NEGAITVE) Urine Bilirubin Negative (NEGATIVE) Urine Urobilinogen Normal (NORMAL) mg/dL Ur Leukocyte Esterase Negative (NEGATIVE) Urine RBC 5-10 H (0-5) Urine WBC 5-10 H (0-5) Ur Epithelial Cells Moderate Amorphous Sediment Few Urine Bacteria Few Urine Mucus Few Digoxin (0.90-2.00) ng/mL 04/03/17 04/03/17 04/03/17 Range/Units 16:40 17:29 17:31 WBC (4.5-11.0) K/uL RBC (4.30-5.90) M/uL Hgb (12.0-15.0) g/dL Hct (40.0-54.0) % MCV (80-98) fL MCH (27-31) pg MCHC (32-36) % Plt Count (150-400) K/uL Neut % (Auto) (36-66) % Lymph % (Auto) (24-44) % [place] % (Auto) (2-6) % Eos % (Auto) (2-4) % Baso % (Auto) (0-1) % Puncture Site Rt brachial ABG pH 7.417 (7.350-7.450) ABG pCO2 47.1 H (35.0-42.0) mmHg ABG pO2 80.1 (75.0-100.0) mmHg ABG HCO3 29.8 H (22.0-26.0) mmol/L ABG Total CO2 27.1 H (23.0-27.0) mmol/L ABG O2 Saturation 95.6 (95.0-98.0) % ABG O2 Content 15.1 (15.0-23.0) %vol ABG Base Excess 5.0 mm/L ABG Hemoglobin 11.5 L (13.5-18.0) g/dL ABG Oxyhemoglobin 93.3 % ABG Carboxyhemoglobin 1.9 H (0.0-1.6) % ABG Methemoglobin 0.5 % Fabrizio Test Passed O2 Delivery Device Nasal cannula Sodium 141 (140-148) mmol/L Potassium 4.3 (3.6-5.2) mmol/L Chloride 103 (100-108) mmol/L Carbon Dioxide 32 (21-32) mmol/L Anion Gap 6.1 (5.0-14.0) mmol/L BUN 38 H (7-18) mg/dL Creatinine 1.4 H (0.8-1.3) mg/dL Est Cr Clr Drug Dosing 41.95 mL/min Estimated GFR (MDRD) 49 L (>60) Glucose 113 H (74-106) mg/dL Calcium 8.8 (8.5-10.1) mg/dL Total Bilirubin 1.7 H (0.2-1.0) mg/dL AST 28 (15-37) U/L ALT 15 (12-78) U/L Alkaline Phosphatase 106 (46-116) U/L Creatine Kinase 47 (39-308) U/L Troponin I (0.000-0.056) ng/mL Qzu-M-Jlynqxnjore Pept 73734 H (5-450) pg/mL Total Protein 7.9 (6.4-8.2) g/dL Albumin 3.2 L (3.4-5.0) g/dL Globulin 4.7 H (2.3-3.5) g/dL Albumin/Globulin Ratio 0.7 L (1.2-2.2) Urine Color Urine Appearance Urine pH (4.5-8.0) Ur Specific [place] (1.008-1.030) Urine Protein (NEGATIVE) mg/dL Urine Glucose (UA) (NEGATIVE) mg/dL Urine Ketones (NEGATIVE) mg/dL Urine Occult Blood (NEGATIVE) Urine Nitrite (NEGAITVE) Urine Bilirubin (NEGATIVE) Urine Urobilinogen (NORMAL) mg/dL Ur Leukocyte Esterase (NEGATIVE) Urine RBC (0-5) Urine WBC (0-5) Ur Epithelial Cells Amorphous Sediment Urine Bacteria Urine Mucus Digoxin 0.96 (0.90-2.00) ng/mL Result Diagrams: 04/03/17 16:40 04/03/17 16:40 *Q Meaningful Use (ADM) - VTE *Q VTE Criteria *Q: - Stroke *Q Stroke Criteria *Q: - AMI *Q AMI Criteria *Q: - Problem List (1) CHF (congestive heart failure) SNOMED Code(s): 81247002 ICD Code: I50.9 - HEART FAILURE, UNSPECIFIED Status: Acute Priority: High Current Visit: Yes Qualifiers: Congestive heart failure type: systolic Congestive heart failure chronicity : acute on chronic Qualified Code(s): I50.23 - Acute on chronic systolic ( congestive) heart failure (2) COPD (chronic obstructive pulmonary disease) SNOMED Code(s): 56039325 ICD Code: J44.9 - CHRONIC OBSTRUCTIVE PULMONARY DISEASE, UNSPECIFIED Status : Acute Priority: High Current Visit: Yes Qualifiers: Chronic bronchitis type: simple (3) Unintentional weight loss SNOMED Code(s): 801044877 ICD Code: R63.4 - ABNORMAL WEIGHT LOSS Status: Acute Priority: High Current Visit: No Problem List Initiated/Reviewed/Updated: Yes Orders Last 24hrs: Active Orders 24 hr Category Date Time Status Patient Status Manage Transfer [TRANSFER] Routine ADT 04/03/17 19:40 Active Cardiac Monitoring [RC] .As Directed Care 04/03/17 19:40 Active EKG Documentation Completion [RC] ASDIRECTED Care 04/03/17 16:34 Active RT Aerosol Therapy [RC] ASDIRECTED Care 04/03/17 17:34 Active Chest 1V Frontal [CR] Stat Exams 04/03/17 16:33 Taken CULTURE URINE [RM] Stat Lab 04/03/17 18:56 Received Resuscitation Status Routine Resus Stat 04/03/17 19:42 Ordered EKG 12 Lead [EK] Routine Ther 04/03/17 16:34 Ordered Assessment/Plan Comment:: ASSESSMENT / PLAN -This is a 81 year old male present to ER via EMS with complaints of worsen shortness of breath and weakness, he decided to come to the hospital/ER for further care and treatment. Family reports for the few days worsen shortness of breath and weakness. Today his found him on the floor unable to get up, was very wobbly. She called for EMS as she was unable to get him up and to the car. Plan CHF -Admit to ICU med-overflow for further monitoring -continue home medication -IV Lasix 40mg in am -Advise to notify nurses of any chest pain or other symptoms -And a.m. labs: CBC, BMP COPD -continue oxygen 2l/NC -duo neb prn -albuterol neg prn Maintenance issues -Orders home meds: -Nutrition: regular diet -Hodgson catheter not indicated at this time -DVT: Lovenox 40 mg subcut -PPI; PO Protonix 40mg daily -consult OT for discharge planning -consult PT for strengthing. -consult Social Service; discharge planning CODE STATUS: DNR/DNI Admission status: Admit to ICU med overflow Admission justification. This patient will be admitted for inpatient services and is medically appropriate meeting medical necessity for inpatient admission as outlined in my documentation. I reasonably expect the patient will require inpatient services that span. Time over 2 midnights. I reasonably expect this patient to be discharged or transferred within 96 hours after admission to the critical [facility] hospital. Disposition; home or extended care facility Primary care provider: Dr. Garcia Hospitalist: Dr. Littlejohn
[2017-04-03] MEDS ORDERED: Ondansetron 4 MG Tab.DIS PO PRN (20:13)
[2017-04-03] MEDS ORDERED: Ibuprofen 400 MG Tab PO PRN (20:13)
[2017-04-03] MEDS ORDERED: Ondansetron 4 MG/2 ML SDV IV PRN (20:13)
[2017-04-03] MEDS ORDERED: Albuterol 0.083% 2.5 MG/3 ML Neb Soln NEB PRN (20:13)
[2017-04-03] MEDS ORDERED: Sodium Chloride 0.9% 10 ML Syringe FLUSH PRN ×2 (20:13)
[2017-04-03] MEDS ORDERED: Acetaminophen 325 MG Tab PO PRN (20:13)
[2017-04-03] MEDS ORDERED: Zolpidem 5 MG Tab PO PRN (20:13)
[2017-04-03] MEDS ORDERED: diphenhydrAMINE 25 MG Cap PO PRN (20:13)
[2017-04-03] MEDS ORDERED: oxyCODONE 5 MG Tab PO PRN (20:13)
[2017-04-03] MEDS ORDERED: Enoxaparin 40 MG/0.4 ML Syringe SUBCUT SCH (20:13)
[2017-04-03] MEDS ORDERED: Docusate Sodium 100 MG Cap PO PRN (20:13)
[2017-04-03] MEDS ORDERED: Bisacodyl 5 MG Tab PO PRN (20:13)
[2017-04-03] MEDS ORDERED: Polyethylene Glycol 3350 Powder 17 GM Packet PO PRN (20:13)
[2017-04-03] MEDS ORDERED: Albuterol/Ipratropium 3.0-0.5 MG/3 ML Neb Soln NEB PRN (20:13)
[2017-04-03] MEDS ORDERED: Morphine 2 MG/ML Syringe IVPUSH PRN (20:13)
[2017-04-03] MEDS ORDERED: LORazepam 2 MG/ML MDV IV PRN (20:13)
[2017-04-03] MEDS ORDERED: Carvedilol 25 MG Tab PO SCH (21:00)
[2017-04-03] MEDS: Citalopram 20 MG Tab PO SCH (21:08)
[2017-04-03] MEDS: Simvastatin 20 MG Tab PO SCH (21:09)
[2017-04-03] MEDS: Digoxin 125 MCG Tab PO SCH (21:10)
[2017-04-04] MEDS: Pantoprazole 40 MG Tab.CR PO SCH (08:28)
[2017-04-04] MEDS ORDERED: Furosemide 40 MG/4 ML VIAL IVPUSH SCH (09:00)
[2017-04-04] MEDS: Multivitamins with Iron/Calcium/Folic Acid/Minerals Tab PO SCH (09:08)
[2017-04-04] MEDS: Carvedilol 12.5 MG Tab PO SCH ×2 (09:08→16:51)
[2017-04-04] MEDS: Ferrous Sulfate 325 MG Tab PO SCH (09:08)
[2017-04-04] MEDS ORDERED: Haloperidol Lactate 5 MG/ML SDV IVPUSH PRN (09:27)
--- NOTE | 2017-04-04 09:35 | PCM.PN ---
- General Info Date of Service: 04/04/17 Functional Status: Reports: Tolerating Diet - Review of Systems General: Reports: Fever. Denies: Weakness, Chills Pulmonary: Reports: No Symptoms Cardiovascular: Reports: No Symptoms Gastrointestinal: Reports: No Symptoms Systems Review Comment:: Mr. Patel is an 81-year-old gentleman who was admitted through the emergency department last night because of severe shortness of breath. He had an episode at home where he was found very short of breath and was unable to get back into a bedroom to put his oxygen on. He does have known underlying congestive heart failure as well as COPD. At baseline has some dementia and is unable to provide significant history concerning recent symptoms or events. He did receive IV Lasix in the emergency department and reports that his breathing is somewhat better. Mild temperature elevation noted last night after admission, white blood cell count is modestly elevated and increased from admission. - Patient Data Vitals - Most Recent: Last Vital Signs Temp 98.7 F 04/04/17 07:48 Pulse 70 04/04/17 09:08 Resp 19 04/04/17 07:48 BP 106/49 L 04/04/17 09:08 Pulse Ox 100 04/04/17 07:48 Weight - Most Recent: 160 lb 14.399 oz I&O - Last 24 Hours: Intake & Output 04/03/17 04/04/17 04/04/17 22:59 06:59 14:59 Output Total 150 Balance -150 Lab Results Last 24 Hours: Laboratory Results - last 24 hr 04/04/17 04/04/17 04/04/17 Range/Units 05:47 05:47 08:47 WBC 13.5 H (4.5-11.0) K/uL RBC 3.68 L (4.30-5.90) M/uL Hgb 10.7 L (12.0-15.0) g/dL Hct 34.0 L (40.0-54.0) % MCV 92 (80-98) fL MCH 29 (27-31) pg MCHC 32 (32-36) % Plt Count 99 L (150-400) K/uL Neut % (Auto) 85 H (36-66) % Lymph % (Auto) 5 L (24-44) % [place] % (Auto) 10 H (2-6) % Eos % (Auto) 0 L (2-4) % Baso % (Auto) 0 (0-1) % Sodium 140 (140-148) mmol/L Potassium 4.3 (3.6-5.2) mmol/L Chloride 104 (100-108) mmol/L Carbon Dioxide 33 H (21-32) mmol/L Anion Gap 7.3 (5.0-14.0) mmol/L BUN 43 H (7-18) mg/dL Creatinine 1.6 H (0.8-1.3) mg/dL Est Cr Clr Drug Dosing 36.70 mL/min Estimated GFR (MDRD) 42 L (>60) Glucose 96 (74-106) mg/dL Calcium 8.5 (8.5-10.1) mg/dL Urine Color Yellow Urine Appearance Slightly cloudy Urine pH 5.0 (4.5-8.0) Ur Specific [place] 1.020 (1.008-1.030) Urine Protein Negative (NEGATIVE) mg/dL Urine Glucose (UA) Normal (NEGATIVE) mg/dL Urine Ketones Negative (NEGATIVE) mg/dL Urine Occult Blood Negative (NEGATIVE) Urine Nitrite Negative (NEGAITVE) Urine Bilirubin Negative (NEGATIVE) Urine Urobilinogen Normal (NORMAL) mg/dL Ur Leukocyte Esterase Negative (NEGATIVE) Urine RBC Not seen (0-5) Urine WBC 0-5 (0-5) Ur Epithelial Cells Rare Amorphous Sediment Many Urine Bacteria Rare Urine Mucus Few Med Orders - Current: Current Medications Acetaminophen (Tylenol) 650 mg PO Q4H PRN PRN Reason: Pain (Mild 1-3)/fever Albuterol (Proventil Neb Soln) 2.5 mg NEB Q4H PRN PRN Reason: Shortness Of Breath/wheezing Albuterol/Ipratropium (Duoneb 3.0-0.5 Mg/3 Ml) 3 ml NEB QID PRN PRN Reason: Shortness Of Breath/wheezing Bisacodyl (Dulcolax) 5 mg PO DAILY PRN PRN Reason: Constipation Carvedilol (Coreg) 12.5 mg PO BIDMEALS [facility] Last Admin: 04/04/17 09:08 Dose: 12.5 mg Citalopram Hydrobromide (Celexa) 20 mg PO BEDTIME [facility] Last Admin: 04/03/17 21:08 Dose: 20 mg Digoxin (Lanoxin) 125 mcg PO BEDTIME [facility] Last Admin: 04/03/17 21:10 Dose: 125 mcg Divalproex Sodium (Divalproex Sodium) 250 mg PO BIDMEALS [facility] Docusate Sodium (Colace) 100 mg PO BID PRN PRN Reason: Constipation Ferrous Sulfate (Ferrous Sulfate) 325 mg PO DAILY [facility] Last Admin: 04/04/17 09:08 Dose: 325 mg Furosemide (Lasix) 40 mg PO DAILY [facility] Haloperidol Lactate (Haldol) 1 mg IVPUSH Q2H PRN PRN Reason: Agitation Levofloxacin/Dextrose 500 mg/ (Premix) 100 mls @ 100 mls/hr IV Q24H [facility] Ibuprofen (Motrin) 400 mg PO Q6H PRN PRN Reason: Pain (mild 1-3) Melatonin (Melatonin) 9 mg PO BEDTIME [facility] Morphine Sulfate (Morphine) 2 mg IVPUSH Q2H PRN PRN Reason: Pain (severe 7-10) Multivitamins/Minerals (Thera M Plus) 1 tab PO DAILY [facility] Last Admin: 04/04/17 09:08 Dose: 1 tab Ondansetron HCl (Zofran Odt) 4 mg PO Q6H PRN PRN Reason: Nausea able to take PO Ondansetron HCl (Zofran) 4 mg IV Q4H PRN PRN Reason: Nausea/Vomiting Oxycodone HCl (Oxycodone) 5 mg PO Q4H PRN PRN Reason: Pain (moderate 4-6) Last Admin: 04/04/17 00:00 Dose: 5 mg Pantoprazole Sodium (Protonix) 40 mg PO ACBREAKFAST [facility] Last Admin: 04/04/17 08:28 Dose: 40 mg Polyethylene Glycol (Miralax) 17 gm PO DAILY PRN PRN Reason: Constipation Senna/Docusate Sodium (Senna Plus) 1 tab PO BID PRN PRN Reason: Constipation Simvastatin (Zocor) 10 mg PO BEDTIME [facility] Last Admin: 04/03/17 21:09 Dose: 10 mg Sodium Chloride (Saline Flush) 10 ml FLUSH ASDIRECTED PRN PRN Reason: Keep Vein Open Sodium Chloride (Saline Flush) 10 ml FLUSH ASDIRECTED PRN PRN Reason: Keep Vein Open Discontinued Medications Albuterol (Proventil Neb Soln) 2.5 mg NEB ONETIME ONE Stop: 04/03/17 17:34 Last Admin: 04/03/17 18:03 Dose: 2.5 mg Carvedilol (Coreg) 12.5 mg PO BID [facility] Last Admin: 04/03/17 21:08 Dose: 12.5 mg Diphenhydramine HCl (Benadryl) 25 mg PO BEDTIME PRN PRN Reason: Insomnia Enoxaparin Sodium (Lovenox) 40 mg SUBCUT DAILY [facility] Last Admin: 04/03/17 21:07 Dose: 40 mg Enoxaparin Sodium (Lovenox) 40 mg SUBCUT Q24H [facility] Furosemide (Lasix) 40 mg IVPUSH ONETIME ONE Stop: 04/03/17 17:33 Last Admin: 04/03/17 18:03 Dose: 40 mg Furosemide (Lasix) 40 mg IVPUSH DAILY [facility] Lorazepam (Ativan) 1 mg IV Q6H PRN PRN Reason: Nausea/Vomiting Zolpidem Tartrate (Ambien) 5 mg PO BEDTIME PRN PRN Reason: Sleep - Exam Quality Assessment: DVT Prophylaxis General: Alert, Cooperative, No Acute Distress Lungs: Normal Respiratory Effort, Rales. No: Rhonchi, Wheezing Cardiovascular: Regular Rate, Regular Rhythm, No Murmurs GI/Abdominal Exam: Normal Bowel Sounds, Soft, Non-Tender, No Distention Extremities: Normal Inspection, No Pedal Edema Skin: Warm, Dry, Intact - Problem List Review Problem List Initiated/Reviewed/Updated: Yes - My Orders Last 24 Hours: My Active Orders 04/04/17 08:18 Sequential Compression Device [OM.PC] Routine 04/04/17 09:10 Blood Culture x2 Reflex Set [OM.PC] Urgent 04/04/17 09:11 CULTURE BLOOD [BC] Urgent CULTURE BLOOD [BC] Urgent 04/04/17 09:15 Divalproex Sodium 250 mg PO BIDMEALS Levofloxacin/Dextrose 5%-Water [Levaquin in D5W 500 MG/100 ML] 500 mg Premix Bag 1 bag IV Q24H 04/04/17 09:27 Haloperidol Lactate [Haldol] 1 mg IVPUSH Q2H PRN 04/04/17 09:30 Furosemide [Lasix] 40 mg PO DAILY 04/04/17 21:00 Melatonin 9 mg PO BEDTIME 04/05/17 05:00 BASIC METABOLIC PANEL,BMP [CHEM] Timed CBC WITH AUTO DIFF [HEME] Timed - Plan Plan:: ASSESSMENT AND PLAN CHF-good diuresis since admission after receiving IV Lasix in the emergency department. Respiratory rate is come down and saturations have been within the desired range. -Lasix 40 mg by mouth daily -Echocardiogram in a.m. to assess left ventricular function and valvular status -2 g sodium diet COPD-he did have temperature elevation since admission and does have elevation in white blood cell count. Formal report on chest x-ray pending question possible left lung infiltrate. -continue oxygen 2l/NC -duo neb prn -albuterol neg prn -Blood cultures 2 -Levofloxacin 500 mg IV every 24 hours Chronic kidney disease stage III -Closely monitor urine output and renal function during hospital stay Delirium with agitation -Melatonin 9 mg by mouth daily at bedtime -Depakote 250 mg by mouth twice a day -Haldol 1 mg IV every 2 hours when necessary Maintenance issues -Orders home meds: -Nutrition: 2 g sodium diet -Hodgson catheter not indicated at this time -DVT: SCUDs, Lovenox held because of thrombocytopenia -PPI; PO Protonix 40mg daily -consult OT for discharge planning -consult PT for strengthing. -consult Social Service; discharge planning CODE STATUS: DNR/DNI Admission status: Admit to ICU med overflow Admission justification. This patient will be admitted for inpatient services and is medically appropriate meeting medical necessity for inpatient admission as outlined in my documentation. I reasonably expect the patient will require inpatient services that span. Time over 2 midnights. I reasonably expect this patient to be discharged or transferred within 96 hours after admission to the critical access hospital. Disposition; home or extended care facility Primary care provider: Dr. Garcia Hospitalist: Dr. Littlejohn
--- NOTE | 2017-04-04 09:40 | CR ---
Portable chest Comparison: 12 February 2017. Findings: The patient has a known chronic left basilar infiltrate as well as pleural effusion. There is no significant interval change. The right lung is stable. There is cardiac enlargement. There is mild vascular engorgement. The cardiac pacemaker on the left is stable. Impression: 1. Chronic left basilar infiltrate and effusion. 2. Cardiac enlargement with mild vascular engorgement. There may be mild underlying CHF.
[2017-04-04] MEDS: Divalproex Sodium Delayed-Release 250 MG Tab.CR PO SCH ×2 (09:45→16:51)
[2017-04-04] MEDS: Furosemide 40 MG Tab PO SCH (09:45)
[2017-04-04] MEDS ORDERED: Levofloxacin/Dextrose 5%-Water 750 MG in Premix Bag 1 BAG IV SCH (10:00)
[2017-04-04] MEDS: Citalopram 20 MG Tab PO SCH (20:27)
[2017-04-04] MEDS: Digoxin 125 MCG Tab PO SCH (20:28)
[2017-04-04] MEDS: Melatonin 3 MG Tab PO SCH (20:28)
[2017-04-04] MEDS: Simvastatin 20 MG Tab PO SCH (20:29)
[2017-04-04] MEDS ORDERED: Enoxaparin 40 MG/0.4 ML Syringe SUBCUT SCH (21:00)
[2017-04-05] MEDS: Pantoprazole 40 MG Tab.CR PO SCH (07:55)
[2017-04-05] MEDS: Carvedilol 12.5 MG Tab PO SCH ×2 (07:59→16:52)
[2017-04-05] MEDS: Divalproex Sodium Delayed-Release 250 MG Tab.CR PO SCH ×2 (07:59→16:52)
[2017-04-05] MEDS: Furosemide 40 MG Tab PO SCH (08:04)
[2017-04-05] MEDS: Multivitamins with Iron/Calcium/Folic Acid/Minerals Tab PO SCH (08:04)
[2017-04-05] MEDS: Ferrous Sulfate 325 MG Tab PO SCH (08:04)
[2017-04-05] MEDS ORDERED: Levofloxacin/Dextrose 5%-Water 750 MG in Premix Bag 1 BAG IV SCH (10:00)
--- NOTE | 2017-04-05 12:22 | PCM.PN ---
- General Info Date of Service: 04/05/17 Functional Status: Reports: Pain Controlled, Tolerating Diet - Review of Systems General: Denies: Fever, Weakness, Chills Pulmonary: Reports: Shortness of Breath. Denies: Pleuritic Chest Pain, Cough, Sputum, Hemoptysis Cardiovascular: Reports: Dyspnea on Exertion. Denies: Chest Pain, Palpitations , Orthopnea, PND Systems Review Comment:: Mr. Patel has shown improvement since yesterday with less peripheral edema and less shortness of breath. Diuresis has been suboptimal thus far and will continue hospitalization one additional day to try and get more fluid off of him. Vital signs have otherwise been stable and he has remained afebrile. White blood cell count has normalized. - Patient Data Vitals - Most Recent: Last Vital Signs Temp 97.0 F 04/05/17 08:00 Pulse 74 04/05/17 08:00 Resp 18 04/05/17 08:00 BP 107/34 L 04/05/17 08:00 Pulse Ox 96 04/05/17 08:00 Weight - Most Recent: 160 lb 14.399 oz I&O - Last 24 Hours: Intake & Output 04/04/17 04/05/17 04/05/17 22:59 06:59 14:59 Intake Total 440 Output Total 250 50 250 Balance 190 -50 -250 Lab Results Last 24 Hours: Laboratory Results - last 24 hr 04/05/17 04/05/17 Range/Units 04:45 04:45 WBC 8.6 (4.5-11.0) K/uL RBC 3.73 L (4.30-5.90) M/uL Hgb 10.8 L (12.0-15.0) g/dL Hct 34.8 L (40.0-54.0) % MCV 93 (80-98) fL MCH 29 (27-31) pg MCHC 31 L (32-36) % Plt Count 99 L (150-400) K/uL Neut % (Auto) 82 H (36-66) % Lymph % (Auto) 6 L (24-44) % [place] % (Auto) 11 H (2-6) % Eos % (Auto) 2 (2-4) % Baso % (Auto) 0 (0-1) % Sodium 140 (140-148) mmol/L Potassium 4.5 (3.6-5.2) mmol/L Chloride 103 (100-108) mmol/L Carbon Dioxide 35 H (21-32) mmol/L Anion Gap 6.5 (5.0-14.0) mmol/L BUN 46 H (7-18) mg/dL Creatinine 1.6 H (0.8-1.3) mg/dL Est Cr Clr Drug Dosing 37.38 mL/min Estimated GFR (MDRD) 42 L (>60) Glucose 87 (74-106) mg/dL Calcium 8.4 L (8.5-10.1) mg/dL Digoxin 1.54 (0.90-2.00) ng/mL [place] Results Last 24 Hours: Microbiology 04/04/17 09:26 Aerobic Blood Culture - Preliminary Blood - Venous - Lab Draw NO GROWTH AFTER 1 DAY Anaerobic Blood Culture - Preliminary NO GROWTH AFTER 1 DAY 04/04/17 09:20 Aerobic Blood Culture - Preliminary Blood - Venous NO GROWTH AFTER 1 DAY Anaerobic Blood Culture - Preliminary NO GROWTH AFTER 1 DAY Med Orders - Current: Current Medications Acetaminophen (Tylenol) 650 mg PO Q4H PRN PRN Reason: Pain (Mild 1-3)/fever Albuterol (Proventil Neb Soln) 2.5 mg NEB Q4H PRN PRN Reason: Shortness Of Breath/wheezing Albuterol/Ipratropium (Duoneb 3.0-0.5 Mg/3 Ml) 3 ml NEB QID PRN PRN Reason: Shortness Of Breath/wheezing Bisacodyl (Dulcolax) 5 mg PO DAILY PRN PRN Reason: Constipation Carvedilol (Coreg) 12.5 mg PO BIDMEALS [facility] Last Admin: 04/05/17 07:59 Dose: 12.5 mg Citalopram Hydrobromide (Celexa) 20 mg PO BEDTIME [facility] Last Admin: 04/04/17 20:27 Dose: 20 mg Digoxin (Lanoxin) 125 mcg PO BEDTIME [facility] Last Admin: 04/04/17 20:28 Dose: 125 mcg Divalproex Sodium (Divalproex Sodium) 250 mg PO BIDMEALS [facility] Last Admin: 04/05/17 07:59 Dose: 250 mg Docusate Sodium (Colace) 100 mg PO BID PRN PRN Reason: Constipation Ferrous Sulfate (Ferrous Sulfate) 325 mg PO DAILY [facility] Last Admin: 04/05/17 08:04 Dose: 325 mg Furosemide (Lasix) 40 mg PO DAILY [facility] Last Admin: 04/05/17 08:04 Dose: 40 mg Haloperidol Lactate (Haldol) 1 mg IVPUSH Q2H PRN PRN Reason: Agitation Levofloxacin/Dextrose 750 mg/ (Premix) 150 mls @ 150 mls/hr IV Q48H [facility] Ibuprofen (Motrin) 400 mg PO Q6H PRN PRN Reason: Pain (mild 1-3) Melatonin (Melatonin) 9 mg PO BEDTIME [facility] Last Admin: 04/04/17 20:28 Dose: 9 mg Morphine Sulfate (Morphine) 2 mg IVPUSH Q2H PRN PRN Reason: Pain (severe 7-10) Multivitamins/Minerals (Thera M Plus) 1 tab PO DAILY [facility] Last Admin: 04/05/17 08:04 Dose: 1 tab Ondansetron HCl (Zofran Odt) 4 mg PO Q6H PRN PRN Reason: Nausea able to take PO Ondansetron HCl (Zofran) 4 mg IV Q4H PRN PRN Reason: Nausea/Vomiting Oxycodone HCl (Oxycodone) 5 mg PO Q4H PRN PRN Reason: Pain (moderate 4-6) Last Admin: 04/04/17 00:00 Dose: 5 mg Pantoprazole Sodium (Protonix) 40 mg PO ACBREAKFAST [facility] Last Admin: 04/05/17 07:55 Dose: 40 mg Polyethylene Glycol (Miralax) 17 gm PO DAILY PRN PRN Reason: Constipation Senna/Docusate Sodium (Senna Plus) 1 tab PO BID PRN PRN Reason: Constipation Simvastatin (Zocor) 10 mg PO BEDTIME [facility] Last Admin: 04/04/17 20:29 Dose: 10 mg Sodium Chloride (Saline Flush) 10 ml FLUSH ASDIRECTED PRN PRN Reason: Keep Vein Open Sodium Chloride (Saline Flush) 10 ml FLUSH ASDIRECTED PRN PRN Reason: Keep Vein Open Discontinued Medications Albuterol (Proventil Neb Soln) 2.5 mg NEB ONETIME ONE Stop: 04/03/17 17:34 Last Admin: 04/03/17 18:03 Dose: 2.5 mg Carvedilol (Coreg) 12.5 mg PO BID [facility] Last Admin: 04/03/17 21:08 Dose: 12.5 mg Diphenhydramine HCl (Benadryl) 25 mg PO BEDTIME PRN PRN Reason: Insomnia Enoxaparin Sodium (Lovenox) 40 mg SUBCUT DAILY [facility] Last Admin: 04/03/17 21:07 Dose: 40 mg Enoxaparin Sodium (Lovenox) 40 mg SUBCUT Q24H [facility] Furosemide (Lasix) 40 mg IVPUSH ONETIME ONE Stop: 04/03/17 17:33 Last Admin: 04/03/17 18:03 Dose: 40 mg Furosemide (Lasix) 40 mg IVPUSH DAILY [facility] Levofloxacin/Dextrose 750 mg/ (Premix) 150 mls @ 150 mls/hr IV Q24H [facility] Last Admin: 04/04/17 10:48 Dose: 150 mls/hr Levofloxacin/Dextrose 750 mg/ (Premix) 150 mls @ 150 mls/hr IV Q48H [facility] Lorazepam (Ativan) 1 mg IV Q6H PRN PRN Reason: Nausea/Vomiting Zolpidem Tartrate (Ambien) 5 mg PO BEDTIME PRN PRN Reason: Sleep - Exam Quality Assessment: Supplemental Oxygen, DVT Prophylaxis General: Alert, Cooperative, No Acute Distress Lungs: Normal Respiratory Effort, Decreased Breath Sounds. No: Crackles, Rales , Rhonchi, Rub, Wheezing Cardiovascular: Regular Rate, Regular Rhythm, No Murmurs GI/Abdominal Exam: Normal Bowel Sounds, Soft, Non-Tender, No Distention Extremities: Pedal Edema Skin: Warm, Dry, Intact - Problem List Review Problem List Initiated/Reviewed/Updated: Yes - My Orders Last 24 Hours: My Active Orders 04/04/17 21:00 Melatonin 9 mg PO BEDTIME 04/04/17 Lunch 2 Gram Sodium Diet [DIET] 04/05/17 09:00 Echo Comp wo Cont [US] Urgent 04/06/17 10:00 Levofloxacin/Dextrose 5%-Water [Levaquin in D5W 750 MG/150 ML] 750 mg Premix Bag 1 bag IV Q48H - Plan Plan:: ASSESSMENT AND PLAN Diuresis in the last 24 hours has not been as good as hoped, will continue hospitalization additional 24 hours to try and get more diuresis. Overall his breathing has improved and peripheral edema is better than it had been. -Lasix 40 mg by mouth daily -Echocardiogram obtained this a.m., results are pending -2 g sodium diet Dyspnea- is close to baseline, he's had no further temperature elevations and his white blood cell count has normalized -continue oxygen 2l/NC -duo neb prn -albuterol neg prn -Blood cultures 2, negative thus far -Levofloxacin 500 mg IV every 24 hours Chronic kidney disease stage III-renal function has remained stable with diuresis -Closely monitor urine output and renal function during hospital stay Delirium with agitation-delirium has improved with current management -Melatonin 9 mg by mouth daily at bedtime -Depakote 250 mg by mouth twice a day -Haldol 1 mg IV every 2 hours when necessary Maintenance issues -Orders home meds: -Nutrition: 2 g sodium diet -Hodgson catheter not indicated at this time -DVT: SCUDs, Lovenox held because of thrombocytopenia -PPI; PO Protonix 40mg daily -consult OT for discharge planning -consult PT for strengthing. -consult Social Service; discharge planning CODE STATUS: DNR/DNI Admission status: Admit to ICU med overflow Admission justification. This patient will be admitted for inpatient services and is medically appropriate meeting medical necessity for inpatient admission as outlined in my documentation. I reasonably expect the patient will require inpatient services that span. Time over 2 midnights. I reasonably expect this patient to be discharged or transferred within 96 hours after admission to the critical access hospital. Disposition; home or extended care facility Primary care provider: Dr. Garcia Hospitalist: Dr. Littlejohn
[2017-04-05] MEDS ORDERED: Magnesium Hydroxide 400 MG/5 ML Susp 30 ML Cup PO PRN (16:22)
[2017-04-05] MEDS: Digoxin 125 MCG Tab PO SCH (21:10)
[2017-04-05] MEDS: Melatonin 3 MG Tab PO SCH (21:10)
[2017-04-05] MEDS: Citalopram 20 MG Tab PO SCH (21:10)
[2017-04-05] MEDS: Simvastatin 20 MG Tab PO SCH (21:11)
[2017-04-06] MEDS: Pantoprazole 40 MG Tab.CR PO SCH (07:45)
[2017-04-06] MEDS: Divalproex Sodium Delayed-Release 250 MG Tab.CR PO SCH (08:14)
[2017-04-06] MEDS: Carvedilol 12.5 MG Tab PO SCH (08:15)
[2017-04-06] MEDS: Furosemide 40 MG Tab PO SCH (08:17)
[2017-04-06] MEDS: Multivitamins with Iron/Calcium/Folic Acid/Minerals Tab PO SCH (08:17)
[2017-04-06] MEDS: Ferrous Sulfate 325 MG Tab PO SCH (08:18)
--- NOTE | 2017-04-06 09:11 | ECHO ---
REFERRING PRACTITIONER: 1. AO ROOT: 3.06 (NL = 2.0-3.7) 2. AORTIC VALVE EXCURSION: 3. LA: 4.99 CM (NL = 1.9-4.0) 4. RV: 3.63 (NL = .09-2.6) 5. LV [place]: 6.33 (NL = 3.5-5.7) 6. LV SYST: 5.32 (NL = 2.2-4.3) 7. FRACTIONAL SHORTENING: (2542) 8. EJECTION FRACTION: 15% to 20% (5075) 9. IVS: 1.44 (NL = 0.6-1.1) 10. LVPW: 1.32 (NL = 0.6 1.1) INDICATION: Congestive heart failure. By 2-D echo, left ventricular function appears to be severely decreased consistent with estimated ejection fraction of 15% to 20%. There is global left ventricular hypokinesis. Best functioning wall appears to be the septal wall. There is concentric left ventricular hypertrophy. Pacemaker wires noted in the right heart. There is no pericardial effusion seen on this study. There is biatrial enlargement. Right ventricular enlargement with decreased right ventricular function as well as left ventricular enlargement. There is calcification of the aortic valve leaflets with mild impairment of leaflet motion. Mitral valve appears to be structurally normal for age and the tricuspid and pulmonic valves appear to be structurally normal. By Doppler and color Doppler, there is elevation in estimated right ventricular pressure at 51 mmHg. There is no evidence of significant aortic stenosis. There is moderate to severe TR, moderate MR, mild PI, and trace AI. IMPRESSION: 1. Severely decreased left ventricular function. Estimated ejection fraction of 15% to 20%. 2. Global left ventricular hypokinesis with left ventricular enlargement. 3. Right ventricular enlargement with decreased right ventricular function. 4. Biatrial enlargement. 5. Concentric left ventricular hypertrophy. 6. Aortic sclerosis without stenosis. 7. Elevation in estimated right ventricular pressure 51 mmHg. 8. [id number] tricuspid regurgitation. 9. Moderate mitral regurgitation. 10. Mild PI. 11. Trace AI. /[id number]
[2017-04-06] MEDS ORDERED: Levofloxacin/Dextrose 5%-Water 750 MG in Premix Bag 1 BAG IV SCH (10:00)
--- NOTE | 2017-04-06 12:18 | PCM.DCSUM1 ---
Discharge Summary - Hospital Course Brief History: Mr. Patel is an 81-year-old gentleman who is admitted through the emergency department because of progressive weakness and shortness of breath secondary to congestive heart failure. - Discharge Data Discharge Date: 04/06/17 Discharge Disposition: DC/Tfer to SNF 03 Condition: Poor - Discharge Diagnosis/Problem(s) (1) Dementia SNOMED Code(s): 14985749 ICD Code: F03.90 - UNSPECIFIED DEMENTIA WITHOUT BEHAVIORAL DISTURBANCE Status: Acute Current Visit: Yes (2) CHF (congestive heart failure) SNOMED Code(s): 16586510 ICD Code: I50.9 - HEART FAILURE, UNSPECIFIED Status: Acute Priority: High Current Visit: Yes Qualifiers: Congestive heart failure type: systolic Congestive heart failure chronicity : acute on chronic Qualified Code(s): I50.23 - Acute on chronic systolic ( congestive) heart failure (3) COPD (chronic obstructive pulmonary disease) SNOMED Code(s): 29589728 ICD Code: J44.9 - CHRONIC OBSTRUCTIVE PULMONARY DISEASE, UNSPECIFIED Status : Acute Priority: High Current Visit: Yes Qualifiers: Chronic bronchitis type: simple (4) Stage III chronic kidney disease SNOMED Code(s): 708633615 ICD Code: N18.3 - CHRONIC KIDNEY DISEASE, STAGE 3 (MODERATE) Status: Chronic Current Visit: No (5) COPD (chronic obstructive pulmonary disease) with emphysema SNOMED Code(s): 53910383 ICD Code: J43.9 - EMPHYSEMA, UNSPECIFIED Status: Chronic Current Visit: No Qualifiers: Emphysema type: unspecified Qualified Code(s): J43.9 - Emphysema, unspecified - Patient Summary/Data Consults: Consultations 04/03/17 20:13 Consult to [employer] Sales Engineer [CONS] Routine Comment: Physician Instructions: OT Evaluation and Treatment [CONS] Routine Please Evaluate and Treat. OT Reason for Consult: Discharge Planning This query below is only for informational purposes and is not editable. PT Evaluation and Treatment [CONS] Routine Please Evaluate and Treat. PT Reason for Consult: Ambulation This query below is only for informational purposes and is not editable. Respiratory Care Assess and Treatment [CONS] Routine Comment: Physician Instructions: Hospital Course: Mr. Patel is an 81-year-old gentleman who has a known history of congestive heart failure, coronary artery disease, and COPD. Over the past few months has become progressively more forgetful and confused. Over the past few weeks has become progressively more short of breath and weak. On the day of admission fell and his was unable to get him up, he was brought into the emergency department for further evaluation. On assessment was noted to have peripheral edema and chest x-ray showed evidence of pulmonary edema. He was admitted to the hospital and given IV diuretic therapy. Diuretic therapy was continued over the next few days of hospital stay and his peripheral edema improved and shortness of breath improved significantly as well. Echocardiogram was obtained and showed severely decreased left ventricular function with estimated ejection fraction of 15-20%. He did have evidence of confusion as well as delirium with agitation, agitation and delirium improved after he was started on melatonin 9 mg by mouth daily at bedtime. He did remain confused but much less agitated. He was continued on beta glenda therapy and will be started on MARIAH inhibitor therapy with lisinopril 5 mg daily. [facility] on furosemide 40 mg by mouth daily. Renal function remained stable during his hospital stay. Activity will be as tolerated and he will resume a heart healthy low-sodium diet. Daily physical therapy and occupational therapy will be scheduled at the [facility] so that he hopefully can regain some strength and be able to return home. Follow-up will be with Dr. Hua at the [facility] as needed. BMP will be ordered in one week. - Patient Instructions Diet: Low Sodium Activity: As Tolerated - Discharge Plan Prescriptions/Med Rec: Levofloxacin [Levaquin] 500 mg PO Q24H #4 tablet Lisinopril 5 mg PO DAILY #30 tablet Melatonin 9 mg PO BEDTIME #90 tablet Home Medications: Home Meds Carvedilol [Coreg] 12.5 mg PO BID 07/31/13 [History] Citalopram Hydrobromide [Celexa] 20 mg PO BEDTIME 07/31/13 [History] Digoxin [Lanoxin] 125 mcg PO BEDTIME 07/31/13 [History] Simvastatin [Zocor] 10 mg PO BEDTIME 07/31/13 [History] Ferrous Sulfate [Iron] 325 mg PO DAILY 12/05/15 [History] Multivit-Min/FA/Lycopene/Lut [Centrum Silver Tablet] 1 each PO DAILY 07/13/16 [ History] Furosemide 40 mg PO DAILY PRN #30 tablet 02/14/17 [Rx] Levofloxacin [Levaquin] 500 mg PO Q24H #4 tablet 04/06/17 [Rx] Lisinopril 5 mg PO DAILY #30 tablet 04/06/17 [Rx] Melatonin 9 mg PO BEDTIME #90 tablet 04/06/17 [Rx] Referrals: Lam Garcia MD [Primary Care Provider] - - Patient Data Vitals - Most Recent: Last Vital Signs Temp 97.7 F 04/06/17 08:00 Pulse 72 04/06/17 08:15 Resp 18 04/06/17 08:00 BP 111/55 L 04/06/17 08:15 Pulse Ox 98 04/06/17 08:00 Weight - Most Recent: 160 lb 14.399 oz I&O - Last 24 hours: Intake & Output 04/05/17 04/06/17 04/06/17 22:59 06:59 14:59 Intake Total 240 100 Output Total 250 525 Balance -10 -425 JOSÉ Results - Last 24 hrs: Microbiology 04/04/17 09:26 Aerobic Blood Culture - Preliminary Blood - Venous - Lab Draw NO GROWTH AFTER 2 DAYS Anaerobic Blood Culture - Preliminary NO GROWTH AFTER 2 DAYS 04/04/17 09:20 Aerobic Blood Culture - Preliminary Blood - Venous NO GROWTH AFTER 2 DAYS Anaerobic Blood Culture - Preliminary NO GROWTH AFTER 2 DAYS Med Orders - Current: Current Medications Acetaminophen (Tylenol) 650 mg PO Q4H PRN PRN Reason: Pain (Mild 1-3)/fever Albuterol (Proventil Neb Soln) 2.5 mg NEB Q4H PRN PRN Reason: Shortness Of Breath/wheezing Albuterol/Ipratropium (Duoneb 3.0-0.5 Mg/3 Ml) 3 ml NEB QID PRN PRN Reason: Shortness Of Breath/wheezing Bisacodyl (Dulcolax) 5 mg PO DAILY PRN PRN Reason: Constipation Carvedilol (Coreg) 12.5 mg PO BIDMEALS [facility] Last Admin: 04/06/17 08:15 Dose: 12.5 mg Citalopram Hydrobromide (Celexa) 20 mg PO BEDTIME [facility] Last Admin: 04/05/17 21:10 Dose: 20 mg Digoxin (Lanoxin) 125 mcg PO BEDTIME [facility] Last Admin: 04/05/17 21:10 Dose: 125 mcg Divalproex Sodium (Divalproex Sodium) 250 mg PO BIDMEALS [facility] [place] Last Admin: 04/06/17 08:14 Dose: 250 mg Docusate Sodium (Colace) 100 mg PO BID PRN PRN Reason: Constipation Ferrous Sulfate (Ferrous Sulfate) 325 mg PO DAILY [facility] Last Admin: 04/06/17 08:18 Dose: 325 mg Furosemide (Lasix) 40 mg PO DAILY [facility] Last Admin: 04/06/17 08:17 Dose: 40 mg Haloperidol Lactate (Haldol) 1 mg IVPUSH Q2H PRN PRN Reason: Agitation Levofloxacin/Dextrose 750 mg/ (Premix) 150 mls @ 150 mls/hr IV Q48H [facility] Last Admin: 04/06/17 08:59 Dose: 150 mls/hr Ibuprofen (Motrin) 400 mg PO Q6H PRN PRN Reason: Pain (mild 1-3) Magnesium Hydroxide (Milk Of Magnesia) 30 ml PO BID PRN PRN Reason: Constipation Last Admin: 04/05/17 16:54 Dose: 30 ml Melatonin (Melatonin) 9 mg PO BEDTIME [facility] Last Admin: 04/05/17 21:10 Dose: 9 mg Morphine Sulfate (Morphine) 2 mg IVPUSH Q2H PRN PRN Reason: Pain (severe 7-10) Multivitamins/Minerals (Thera M Plus) 1 tab PO DAILY [facility] Last Admin: 04/06/17 08:17 Dose: 1 tab Ondansetron HCl (Zofran Odt) 4 mg PO Q6H PRN PRN Reason: Nausea able to take PO Ondansetron HCl (Zofran) 4 mg IV Q4H PRN PRN Reason: Nausea/Vomiting Oxycodone HCl (Oxycodone) 5 mg PO Q4H PRN PRN Reason: Pain (moderate 4-6) Last Admin: 04/04/17 00:00 Dose: 5 mg Pantoprazole Sodium (Protonix) 40 mg PO ACBREAKFAST [facility] Last Admin: 04/06/17 07:45 Dose: 40 mg Polyethylene Glycol (Miralax) 17 gm PO DAILY PRN PRN Reason: Constipation Senna/Docusate Sodium (Senna Plus) 1 tab PO BID PRN PRN Reason: Constipation Simvastatin (Zocor) 10 mg PO BEDTIME [facility] Last Admin: 04/05/17 21:11 Dose: 10 mg Sodium Chloride (Saline Flush) 10 ml FLUSH ASDIRECTED PRN PRN Reason: Keep Vein Open Sodium Chloride (Saline Flush) 10 ml FLUSH ASDIRECTED PRN PRN Reason: Keep Vein Open Discontinued Medications Albuterol (Proventil Neb Soln) 2.5 mg NEB ONETIME ONE Stop: 04/03/17 17:34 Last Admin: 04/03/17 18:03 Dose: 2.5 mg Carvedilol (Coreg) 12.5 mg PO BID [facility] Last Admin: 04/03/17 21:08 Dose: 12.5 mg Diphenhydramine HCl (Benadryl) 25 mg PO BEDTIME PRN PRN Reason: Insomnia Enoxaparin Sodium (Lovenox) 40 mg SUBCUT DAILY [facility] Last Admin: 04/03/17 21:07 Dose: 40 mg Enoxaparin Sodium (Lovenox) 40 mg SUBCUT Q24H [facility] Furosemide (Lasix) 40 mg IVPUSH ONETIME ONE Stop: 04/03/17 17:33 Last Admin: 04/03/17 18:03 Dose: 40 mg Furosemide (Lasix) 40 mg IVPUSH DAILY [facility] Levofloxacin/Dextrose 750 mg/ (Premix) 150 mls @ 150 mls/hr IV Q24H [facility] Last Admin: 04/04/17 10:48 Dose: 150 mls/hr Levofloxacin/Dextrose 750 mg/ (Premix) 150 mls @ 150 mls/hr IV Q48H [facility] Lorazepam (Ativan) 1 mg IV Q6H PRN PRN Reason: Nausea/Vomiting Zolpidem Tartrate (Ambien) 5 mg PO BEDTIME PRN PRN Reason: Sleep *Q Meaningful Use (DIS) - VTE *Q VTE Criteria *Q: - Stroke *Q Stroke Criteria *Q: - AMI *Q AMI Criteria *Q:
[2017-04-06 12:21] VITALS: BP 128/41
== END 2017-04-06 13:20 | DRG 291 ==
LOC: JP.ED 16:15 → JP.ICU 19:40 → UNDOADMIN 19:40 → JP.ICU 20:13 → UNDODISIN 04-06 13:20
PROVIDERS: ADMIT Hospitalist; ATTEND Hospitalist
DX: I13.0 Hypertensive heart and chronic kidney disease with heart failure and stage 1 through stage 4 chronic kidney disease, or unspecified chronic kidney disease (principal); I50.23 Acute on chronic systolic (congestive) heart failure; J44.9 Chronic obstructive pulmonary disease, unspecified; R63.4 Abnormal weight loss; N18.3 Chronic kidney disease, stage 3 (moderate); Z66 Do not resuscitate; F03.90 Unspecified dementia, unspecified severity, without behavioral disturbance, psychotic disturbance, mood disturbance, and anxiety; R41.0 Disorientation, unspecified; R45.1 Restlessness and agitation; E78.00 Pure hypercholesterolemia, unspecified; I25.10 Atherosclerotic heart disease of native coronary artery without angina pectoris; F32.9 Major depressive disorder, single episode, unspecified; M19.90 Unspecified osteoarthritis, unspecified site; Z87.891 Personal history of nicotine dependence; Z95.5 Presence of coronary angioplasty implant and graft; Z87.01 Personal history of pneumonia (recurrent); Z95.0 Presence of cardiac pacemaker; Z95.1 Presence of aortocoronary bypass graft; H91.90 Unspecified hearing loss, unspecified ear; R53.1 Weakness; R06.02 Shortness of breath
CPT/HCPCS: 36415; 36600; 71010 ×2; 80053; 80162; 81001; 82550; 82803; 83880; 84484; 85025; 87086; 93005; 96374; 99285; J1940; 80048; 87040; 93010; 93306; 93306-26; 97161-GP; 97530-GP; A9270-GY; J1650; J1956